=== PATIENT | female | born 1965 | race Two or more races ===

== ENCOUNTER 2017-01-19 16:33 | Emergency (ER) | payer MEDICARE, MEDICAID ==
[~2017-01-19] VITALS: Ht 157.5 cm; Wt 58.4 kg
[~2017-01-19 16:33] MED LIST: /METO25TAB PO; ACET65TA OR; ALPR1TAB3 PO; BUDE150T OR; BUPR150T5 PO; BUTR20DI2 TD; CIPR-249 PO; CLON1TAB PO; DIPH2.5L PO; FIOR1CAP PO; FIORICET OR; FIORICET PO; FLAG500T PO; HYDR-3363 PO; IBUP200T2 PO; KLON1TAB OR; KLON1TAB PO; KLON2TAB PO; LABE20TAB PO; LEVO100T4 PO; LEVO75TA2 OR; LISI10TA4 OR; LISI10TA4 PO; MAALSUS OR; MAGN500T2 OR; METH2.5T PO; PHEN 25 OR; PHEN25IN3 PO; PRED10TA2 OR; PRED20TA OR; PRIN10TA PO; PROP10TAB PO; PROP60TA OR; PROZ20CA OR; SERO1TAB PO; SERO50TA PO; TIZA4CAP PO; TIZA4CAP3 PO; TIZA4TAB3 PO; TUMS500C PO; TYLE650T25 PO; Tylenol PO; VALI10TA PO; VENL75TA3 PO; VITA100T OR; VITAMIN B 12 IM; WELL100T2 PO; ZANA4CAP PO; ZOLP12.515 PO
[2017-01-19] MEDS ORDERED: [UNRECOGNIZED DRUG - OTHER] XX (17:26)
[2017-01-19] MEDS ORDERED: MAGN200T PO (17:26)
[2017-01-19] MEDS ORDERED: ADDE10CA3 PO (17:26)
[2017-01-19] MEDS ORDERED: IMIT100T PO (17:26)
[2017-01-19] MEDS ORDERED: SONA1CAP PO (17:26)
[2017-01-19] MEDS ORDERED: ADDE1TAB14 PO (17:26)
[2017-01-19] MEDS ORDERED: TOPI50TA9 PO (17:26)
[2017-01-19] MEDS ORDERED: [UNRECOGNIZED DRUG - OTHER] PO (17:26)
[2017-01-19] MEDS ORDERED: CLEO300C2 PO (17:27)
[2017-01-19] MEDS ORDERED: ALBE200T7 PO (18:44)
[2017-01-19 18:53] VITALS: BP 141/103
--- NOTE | 2017-01-19 21:03 | ED PDOC ---
Post-Departure Follow-Up PT PRESENTS WITH TODAY STATING SINCE November, THEY HAVE BEEN HAVING BUG BITES. THE STATE THEY CAN SEE THE BUGS, THEY ARE SMALL AND DARK IN COLOR AND THEY CAN SEE THE BUGS BITING THEM AND BURROWING UNDER THEIR SKIN. PATIENTS STATE THAT THE PICKS THESE AREAS AND HAS PICKED BUGS OUT OF HIS SKIN. THIS PT STATES SHE HAS TAKEN PICTURES OF THEM ON HER PHONE AND SHOWED THESE TO THE PROVIDER. STATES THAT THEY ARE DIFFERENT TYPES, SOME APPEAR LIKE CRABS AND SOME APPEAR LIKE WORMS. PT AND STATE THAT THEY HAVE BEEN SEEN NUMEROUS TIMES FOR THIS AND HAVE BEEN GIVEN ANTIBIOTICS, BACTROBAN, BACITRACIN, PERMETHRIN AND NONE OF THESE MEDICATIONS HAVE HELPED THEIR SYMPTOMS. PATIENTS REQUEST TO SEE DR. 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 PATIENTS WERE GIVEN ANTIPARASITIC PRESCRIPTIONS WELL INFORMATION REGARDING DERMATOLOGY AND DR. PACHECO'S OFFICE. PATIENTS LEFT WITH UNDERSTANDING OF THE TREATMENT PLAN. EVETTE ATKINSON PA-C Jan 19, 2017 21:03
== END 2017-01-19 19:09 | disposition home or self-care (01) ==
LOC: M ED 16:33
DX: B88.9 Infestation, unspecified (principal); Z79.899 Other long term (current) drug therapy; Z88.1 Allergy status to other antibiotic agents; Z88.0 Allergy status to penicillin; Z88.5 Allergy status to narcotic agent; Z88.8 Allergy status to other drugs, medicaments and biological substances

== ENCOUNTER 2017-01-24 16:30 | Emergency (ER) | payer MEDICARE, MEDICAID ==
[~2017-01-24] VITALS: Ht 157.5 cm; Wt 56.4 kg
[2017-01-24 16:30] VITALS: BP 148/100
[~2017-01-24 16:30] MED LIST changes: +ADDE10CA3 PO; +ADDE1TAB14 PO; +ALBE200T7 PO; +CLEO300C2 PO; +IMIT100T PO; +MAGN200T PO; +SONA1CAP PO; +TOPI50TA9 PO; +[UNRECOGNIZED DRUG - OTHER] PO; +[UNRECOGNIZED DRUG - OTHER] XX
[2017-01-24] MEDS ORDERED: LIDOCAINE 4% CREAM 5GM (LMX4) TOP ONE (17:45)
== END 2017-01-24 18:11 | disposition home or self-care (01) ==
LOC: M ED 16:30
DX: B89 Unspecified parasitic disease (principal); I10 Essential (primary) hypertension; M79.7 Fibromyalgia; E05.90 Thyrotoxicosis, unspecified without thyrotoxic crisis or storm; Z79.899 Other long term (current) drug therapy; Z88.0 Allergy status to penicillin; Z88.8 Allergy status to other drugs, medicaments and biological substances; Z88.5 Allergy status to narcotic agent; Z88.1 Allergy status to other antibiotic agents

== ENCOUNTER → 2017-01-28 | Outpatient (REF) | payer MEDICARE, MEDICAID ==
[2017-01-28 13:19] LABS: BASO # 0.1 K/mm3 (0.0-0.2); BASO % 1.4 % (0.0-1.0); EOS # 0.1 K/mm3 (0.0-0.50); EOS % 1.5 % (0.0-3.0); LARGE UNSTAINED CELL # 0.1 K/mm3 (0.0-0.4); LARGE UNSTAINED CELL % 1.6 % (0.0-4.0); LYMPH % 33.8 % (24.0-44.0); MEAN CORPUSCULAR HEMOGLOBIN 29.2 pg (27.0-33.0); MEAN CORPUSCULAR HGB CONC 34.3 g/dl (32.0-36.5); MEAN CORPUSCULAR VOLUME 85.2 fl (80.0-96.0); MONO # 0.4 K/mm3 (0.0-0.8); MONO % 4.7 % (0.0-5.0); NEUTROPHILS % 56.9 % (36.0-66.0); PLATELET COUNT, AUTOMATED 362 k/mm3 (150-450); RED CELL DISTRIBUTION WIDTH 13.1 % (11.5-14.5); WHITE BLOOD COUNT 8.9 K/mm3 (4.0-10.0)
[2017-01-28 13:37] LABS: ALBUMIN 4.1 GM/DL (3.2-5.2); ALBUMIN/GLOBULIN RATIO 1.24 (1.00-1.93); ALKALINE PHOSPHATASE 87 U/L (45-117); ALT/SGPT 18 U/L (12-78); ANION GAP 10 MEQ/L (8-16); AST/SGOT 23 U/L (15-37); BILIRUBIN,TOTAL 0.3 MG/DL (0.2-1.0); BLOOD UREA NITROGEN 12 MG/DL (7-18); CALCIUM LEVEL 9.2 MG/DL (8.5-10.1); CARBON DIOXIDE LEVEL 22 MEQ/L (21-32); CHLORIDE LEVEL 105 MEQ/L (98-107); CREATININE FOR GFR 1.21 MG/DL (0.55-1.02); GLOMERULAR FILTRATION RATE 50.3 (>58); GLUCOSE, FASTING 68 MG/DL (70-105); POTASSIUM SERUM 3.5 MEQ/L (3.5-5.1); SODIUM LEVEL 137 MEQ/L (136-145); TOTAL PROTEIN 7.4 GM/DL (6.4-8.2)
[2017-01-28 13:56] LABS: ERYTHROCYTE SEDIMENTATION RATE 5 mm/hr (0-20)
== END ==
LOC: M SFHCPLAZ 10:01
PROVIDERS: ATTEND Internal Medicine Infectious Disease
DX: R21 Rash and other nonspecific skin eruption (principal); M79.7 Fibromyalgia; L98.499 Non-pressure chronic ulcer of skin of other sites with unspecified severity
CPT/HCPCS: 80053; 85025; 85652; 86140; 86200; 86431; 87070; G0463

== ENCOUNTER 2017-12-27 08:00 | Emergency (ER) | payer MEDICARE, MEDICAID ==
[2017-12-27] MEDS: clonazePAM 1 MG TAB PO (08:44)
== END 2017-12-27 09:52 | disposition home or self-care (01) ==
LOC: M ED 08:00
DX: Z76.0 Encounter for issue of repeat prescription (principal); M06.9 Rheumatoid arthritis, unspecified; M79.7 Fibromyalgia; F39 Unspecified mood [affective] disorder; Z79.899 Other long term (current) drug therapy; Z88.1 Allergy status to other antibiotic agents; Z88.0 Allergy status to penicillin; Z88.5 Allergy status to narcotic agent; Z88.8 Allergy status to other drugs, medicaments and biological substances
CPT/HCPCS: 99283

== ENCOUNTER → 2018-05-20 | Outpatient (CLI) | payer MEDICARE, MEDICAID ==
[2018-05-20 13:52] LABS: BASO # 0.1 10^3/uL (0.0-0.2); BASO % 0.8 % (0.0-1.0); EOS % 0.3 % (0.0-3.0); HEMATOCRIT 45.1 % (36.0-47.0); HEMOGLOBIN 15.4 g/dl (12.0-15.5); IMMATURE GRANULOCYTE % 0.3 % (0-3.0); LYMPH # 3.1 10^3/uL (1.5-4.5); LYMPH % 24.9 % (24.0-44.0); MEAN CORPUSCULAR HEMOGLOBIN 29.7 pg (27.0-33.0); MEAN CORPUSCULAR HGB CONC 34.1 g/dl (32.0-36.5); MEAN CORPUSCULAR VOLUME 87.1 fl (80.0-96.0); MONO % 7.7 % (0.0-5.0); NEUTROPHILS # 8.2 10^3/uL (1.8-7.7); PLATELET COUNT, AUTOMATED 359 10^3/uL (150-450); RED BLOOD COUNT 5.18 10^6/uL (4.00-5.40); RED CELL DISTRIBUTION WIDTH 12.5 % (11.5-14.5); WHITE BLOOD COUNT 12.4 10^3/uL (4.0-10.0)
[2018-05-20 14:16] LABS: ALBUMIN 3.6 GM/DL (3.2-5.2); ALBUMIN/GLOBULIN RATIO 0.88 (1.00-1.93); ALKALINE PHOSPHATASE 118 U/L (45-117); ALT/SGPT 24 U/L (12-78); ANION GAP 10 MEQ/L (8-16); AST/SGOT 26 U/L (7-37); BILIRUBIN,TOTAL 0.4 MG/DL (0.2-1.0); BLOOD UREA NITROGEN 16 MG/DL (7-18); CALCIUM LEVEL 8.7 MG/DL (8.5-10.1); CARBON DIOXIDE LEVEL 21 MEQ/L (21-32); CHLORIDE LEVEL 113 MEQ/L (98-107); CHOLESTEROL LEVEL 360 MG/DL (<200); CHOLESTEROL RISK RATIO 3.636 (<5); CREATININE FOR GFR 1.01 MG/DL (0.55-1.30); FREE T4 0.74 NG/DL (0.76-1.46); GLOMERULAR FILTRATION RATE > 60.0 (>51); GLUCOSE, FASTING 106 MG/DL (70-100); HDL CHOLESTEROL 99 MG/DL (>40); LDL CHOLESTEROL 218 MG/DL (<100); NON-HDL-C 261 MG/DL; POTASSIUM SERUM 3.9 MEQ/L (3.5-5.1); SODIUM LEVEL 144 MEQ/L (136-145); TOTAL PROTEIN 7.7 GM/DL (6.4-8.2); TRIGLYCERIDES LEVEL 214 MG/DL (<150)
[2018-05-20 14:26] LABS: ESTIMATED AVERAGE GLUCOSE 108 MG/DL (60-110); HEMOGLOBIN A1c 5.4 %
== END ==
LOC: M RAD 11:34
DX: M50.21 Other cervical disc displacement, high cervical region (principal); M50.221 Other cervical disc displacement at C4-C5 level; M50.222 Other cervical disc displacement at C5-C6 level; M25.78 Osteophyte, vertebrae; M46.1 Sacroiliitis, not elsewhere classified; M79.10 Myalgia, unspecified site; M47.814 Spondylosis without myelopathy or radiculopathy, thoracic region; M47.812 Spondylosis without myelopathy or radiculopathy, cervical region; M51.37 Other intervertebral disc degeneration, lumbosacral region; Z51.81 Encounter for therapeutic drug level monitoring; Z79.899 Other long term (current) drug therapy
CPT/HCPCS: 72141

== ENCOUNTER 2018-11-12 23:24 | Emergency (ER) | payer MEDICARE, MEDICAID ==
[~2018-11-12] VITALS: Ht 160 cm; Wt 73.3 kg
[~2018-11-12 23:24] MED LIST changes: -/METO25TAB PO; +ADDE20CA3 PO; +AMPH20CA PO; +ATOM40CA PO; +CELE10TA PO; +HYDR50TA70 PO; +LEVO150T7; +METH2.5T48 PO; +METO1TAB87 PO; +OXYC1TAB23 PO; +QUET5TAB PO; +SONA10CA23 PO; -TIZA4CAP3 PO; +VENL-142 PO; -VENL75TA3 PO; +VITA500T PO; +ZALE10CA; +ZOFR4TAB14 PO
[2018-11-13 02:21] VITALS: BP 122/78
--- NOTE | 2018-11-13 07:01 | REP ---
Clinical: Trauma Technique: AP, lateral, bilateral oblique views of the right hand. Findings: Old fractures involving the third and fourth metacarpal bones noted. No acute fracture dislocation. Soft tissues and joint spaces are intact and normal. Impression: No acute fracture dislocation. Electronically Signed by Matt Monroe MD 11/13/2018 06:52 A
== END 2018-11-13 02:56 | disposition home or self-care (01) ==
LOC: M ED 23:24 → EEVIPCON 23:24 → M ED 11-13 02:56
DX: S60.221A Contusion of right hand, initial encounter (principal); Y04.8XXA Assault by other bodily force, initial encounter; Y07.01 Husband, perpetrator of maltreatment and neglect; F33.9 Major depressive disorder, recurrent, unspecified; F41.9 Anxiety disorder, unspecified; Z79.899 Other long term (current) drug therapy; Z79.890 Hormone replacement therapy; Z88.0 Allergy status to penicillin; Z88.1 Allergy status to other antibiotic agents; Z88.5 Allergy status to narcotic agent; Z88.8 Allergy status to other drugs, medicaments and biological substances; F17.210 Nicotine dependence, cigarettes, uncomplicated

== ENCOUNTER → 2018-11-22 | Outpatient (CLI) | payer MEDICARE, MEDICAID ==
[2018-11-22 13:19] LABS: THYROID STIMULATING HORMONE 10.2 uIU/ML (0.358-3.740); THYROXINE (T4) 4.9 UG/DL (4.5-12.0)
== END ==
LOC: M LAB 11:55
PROVIDERS: ATTEND Anesthesiology Pain Medicine
DX: E03.9 Hypothyroidism, unspecified (principal)

== ENCOUNTER 2019-09-03 21:20 | Emergency (ER) | payer MEDICARE, MEDICAID ==
[~2019-09-03] VITALS: Ht 157.5 cm; Wt 72.7 kg
[~2019-09-03 21:20] MED LIST changes: +AMPH1CAP16 PO; -AMPH20CA PO
[2019-09-03] MEDS ORDERED: diphenhydrAMINE INJ 50MG/ML VIAL (J1200) IM STA (21:44)
[2019-09-03] MEDS ORDERED: HALOPERIDOL 5 MG/ML VIAL (J1630) IM STA (21:44)
[2019-09-03] MEDS ORDERED: LORazepam 2 MG/ML VIAL (J2060) IM STA (21:44)
[2019-09-03 23:25] LABS: HEMOGLOBIN 14.8 g/dl (12.0-15.5); MEAN CORPUSCULAR HGB CONC 33.6 g/dl (32.0-36.5); MEAN CORPUSCULAR VOLUME 86.1 fl (80.0-96.0); PLATELET COUNT, AUTOMATED 295 10^3/uL (150-450); RED BLOOD COUNT 5.11 10^6/uL (4.00-5.40); WHITE BLOOD COUNT 6.5 10^3/uL (4.0-10.0)
[2019-09-03 23:57] LABS: ACETAMINOPHEN LEVEL < 2.0 UG/ML (10.0-30.0); ALBUMIN 3.3 GM/DL (3.2-5.2); ALT/SGPT 79 U/L (12-78); BILIRUBIN,DIRECT 0.2 MG/DL (0.0-0.2); BILIRUBIN,TOTAL 0.2 MG/DL (0.2-1.0); BLOOD UREA NITROGEN 14 MG/DL (7-18); CARBON DIOXIDE LEVEL 24 MEQ/L (21-32); CHLORIDE LEVEL 111 MEQ/L (98-107); CREATININE FOR GFR 0.64 MG/DL (0.55-1.30); ETHYL ALCOHOL (ETHANOL) 0.289 % (0.000-0.010); GLOMERULAR FILTRATION RATE > 60.0 (>51); GLUCOSE, FASTING 107 MG/DL (70-100); POTASSIUM SERUM 3.9 MEQ/L (3.5-5.1); SALICYLATE LEVEL < 1.7 MG/DL (5.0-30.0); SODIUM LEVEL 142 MEQ/L (136-145); THYROID STIMULATING HORMONE < 0.005 uIU/ML (0.358-3.740); TOTAL PROTEIN 6.4 GM/DL (6.4-8.2)
[2019-09-04 00:28] LABS: AMPHETAMINES LEVEL URINE NEGATIVE (NEGATIVE); BARBITURATES URINE NEGATIVE (NEGATIVE); BENZODIAZEPINES URINE NEGATIVE (NEGATIVE); CANNABINOIDS URINE NEGATIVE (NEGATIVE); COCAINE METABOLITE URINE NEGATIVE (NEGATIVE); METHADONE URINE NEGATIVE (NEGATIVE); OPIATES URINE NEGATIVE (NEGATIVE); PHENCYCLIDINE URINE NEGATIVE (NEGATIVE)
[2019-09-04] MEDS ORDERED: LORazepam 2 MG TAB PO PRN (04:45)
[2019-09-04 08:25] VITALS: BP 143/83
[2019-09-04] MEDS ORDERED: TOPIRAMATE (TopAMAX) 25 MG TAB PO ONE (08:45)
[2019-09-04] MEDS ORDERED: clonazePAM 1 MG TAB PO ONE (08:45)
[2019-09-04] MEDS ORDERED: LEVOTHYROXINE 100MCG TABLET (0.1MG) PO ONE (08:45)
[2019-09-04] MEDS ORDERED: FOLIC ACID 1 MG TAB PO SCH (09:00)
[2019-09-04] MEDS ORDERED: MULTIVITAMINS/MINERALS THERAP 1 TAB PO SCH (09:00)
[2019-09-04] MEDS ORDERED: THIAMINE 100 MG TAB PO SCH (09:00)
== END 2019-09-04 08:58 | disposition home or self-care (01) ==
LOC: M ED 21:20
DX: F10.120 Alcohol abuse with intoxication, uncomplicated (principal); F33.9 Major depressive disorder, recurrent, unspecified; F41.9 Anxiety disorder, unspecified; I10 Essential (primary) hypertension; E03.9 Hypothyroidism, unspecified; Z88.0 Allergy status to penicillin; Z88.5 Allergy status to narcotic agent; Z88.9 Allergy status to unspecified drugs, medicaments and biological substances; Z79.899 Other long term (current) drug therapy
CPT/HCPCS: 36415; 80048; 80076; 84443; 85027; 96372; 99285; G0480; J1200; J1630; J2060

== ENCOUNTER 2019-09-08 13:39 | Emergency (ER) | payer MEDICARE, MEDICAID ==
[~2019-09-08] VITALS: Ht 157.5 cm; Wt 74.9 kg
[2019-09-08 13:41] VITALS: BP 144/97
[2019-09-08] MEDS ORDERED: LEVO200T4 PO (14:06)
[2019-09-08] MEDS ORDERED: AMPH1CAP5 PO (14:06)
[2019-09-08] MEDS ORDERED: MELO15TA28 PO (14:06)
[2019-09-08] MEDS ORDERED: AMMO12CR7 TOP (16:08)
--- NOTE | 2019-09-09 07:32 | REP ---
CT BRAIN WITHOUT IV CONTRAST: CT brain performed without IV contrast. Ventricles are normal in size and position with no midline shift or mass effect. Miller-white differentiation is well maintained. There is no intracranial hemorrhage or extra-axial fluid collection. Bone window examination demonstrates no fracture. IMPRESSION: Negative noncontrast CT brain. Electronically Signed by Richie Miller MD 09/09/2019 05:53 P
--- NOTE | 2019-09-09 07:37 | REP ---
CT MAXILLOFACIAL BONES: CT maxillofacial bones performed without IV contrast. Sagittal and coronal reconstruction images are performed. Maxillofacial bones are intact with no fracture. Nasal bones are intact as are the maxillary spines. Zygomatic arches are intact. Paranasal sinuses are clear with no air-fluid levels. Globes are intact. IMPRESSION: No evidence of acute fracture. Electronically Signed by Richie Miller MD 09/09/2019 05:54 P
== END 2019-09-08 16:30 | disposition home or self-care (01) ==
LOC: M ED 13:39
DX: S00.83XA Contusion of other part of head, initial encounter (principal); X58.XXXA Exposure to other specified factors, initial encounter; Y92.239 Unspecified place in hospital as the place of occurrence of the external cause; I10 Essential (primary) hypertension; M79.7 Fibromyalgia; F41.9 Anxiety disorder, unspecified; Z88.0 Allergy status to penicillin; Z88.5 Allergy status to narcotic agent; Z88.8 Allergy status to other drugs, medicaments and biological substances; Z79.83 Long term (current) use of bisphosphonates; Z79.899 Other long term (current) drug therapy

== ENCOUNTER 2020-01-27 09:38 | Emergency (ER) | payer OTHER, MEDICAID ==
[~2020-01-27] VITALS: Ht 157.5 cm; Wt 75.5 kg
[~2020-01-27 09:38] MED LIST changes: +AMMO12CR7 TOP; +AMPH1CAP5 PO; -ATOM40CA PO; +ATOM40CA16 PO; +LEVO200T4 PO; +MELO15TA28 PO; +VITA-243 PO; -VITA500T PO
[2020-01-27] MEDS ORDERED: ZOLP10TA2 (09:53)
[2020-01-27] MEDS ORDERED: QUET5TAB (09:53)
[2020-01-27] MEDS ORDERED: LORazepam 0.5 MG TAB PO STA (10:41)
[2020-01-27 12:11] LABS: AMPHETAMINES LEVEL URINE POSITIVE (NEGATIVE); BARBITURATES URINE NEGATIVE (NEGATIVE); BENZODIAZEPINES URINE POSITIVE (NEGATIVE); CANNABINOIDS URINE POSITIVE (NEGATIVE); COCAINE METABOLITE URINE NEGATIVE (NEGATIVE); METHADONE URINE NEGATIVE (NEGATIVE); OPIATES URINE NEGATIVE (NEGATIVE); PHENCYCLIDINE URINE NEGATIVE (NEGATIVE)
[2020-01-27 12:39] LABS: BASO # 0.1 10^3/uL (0.0-0.2); BASO % 0.4 % (0.0-1.0); EOS % 0.3 % (0.0-3.0); HEMATOCRIT 45.3 % (36.0-47.0); HEMOGLOBIN 15.5 g/dl (12.0-15.5); LYMPH # 3.5 10^3/uL (1.5-5.0); LYMPH % 30.7 % (24.0-44.0); MEAN CORPUSCULAR HEMOGLOBIN 28.9 pg (27.0-33.0); MEAN CORPUSCULAR HGB CONC 34.2 g/dl (32.0-36.5); MEAN CORPUSCULAR VOLUME 84.4 fl (80.0-96.0); MONO # 0.6 10^3/uL (0.0-0.8); MONO % 5.5 % (0.0-5.0); NEUTROPHILS # 7.2 10^3/uL (1.5-8.5); NEUTROPHILS % 62.8 % (36.0-66.0); PLATELET COUNT, AUTOMATED 372 10^3/uL (150-450); RED BLOOD COUNT 5.37 10^6/uL (4.00-5.40); WHITE BLOOD COUNT 11.4 10^3/uL (4.0-10.0)
[2020-01-27 13:17] LABS: ACETAMINOPHEN LEVEL < 2.0 UG/ML (10.0-30.0); ALBUMIN 4.3 GM/DL (3.2-5.2); ALT/SGPT 19 U/L (12-78); BILIRUBIN,DIRECT 0.2 MG/DL (0.0-0.2); BILIRUBIN,TOTAL 0.7 MG/DL (0.2-1.0); BLOOD UREA NITROGEN 19 MG/DL (7-18); CALCIUM LEVEL 9.6 MG/DL (8.5-10.1); CARBON DIOXIDE LEVEL 23 MEQ/L (21-32); CHLORIDE LEVEL 109 MEQ/L (98-107); CREATININE FOR GFR 1.29 MG/DL (0.55-1.30); ETHYL ALCOHOL (ETHANOL) < 0.003 % (0.000-0.010); GLOMERULAR FILTRATION RATE 46.2 (>51); GLUCOSE, FASTING 96 MG/DL (70-100); LIPASE 90 U/L (73-393); POTASSIUM SERUM 4.2 MEQ/L (3.5-5.1); SALICYLATE LEVEL < 1.7 MG/DL (5.0-30.0); SODIUM LEVEL 138 MEQ/L (136-145); THYROID STIMULATING HORMONE 0.055 uIU/ML (0.358-3.740); TOTAL PROTEIN 8.2 GM/DL (6.4-8.2)
[2020-01-27 13:42] VITALS: BP 125/96
[2020-01-27 13:42] LABS: FREE T4 1.63 NG/DL (0.76-1.46)
[2020-01-27 13:58] LABS: CHLAMYDIA DNA AMPLIFICATION NEGATIVE (NEGATIVE); GC DNA AMPLIFICATION NEGATIVE (NEGATIVE)
[2020-01-27] MEDS ORDERED: VALA500T5 PO (14:31)
[2020-01-27] MEDS ORDERED: BACI500O21 TOP (14:32)
[2020-01-27] MEDS ORDERED: AMMO12CR7 TOP (14:37)
== END 2020-01-27 14:44 | disposition home or self-care (01) ==
LOC: M ED 09:38
DX: A60.04 Herpesviral vulvovaginitis (principal); L73.9 Follicular disorder, unspecified; F12.10 Cannabis abuse, uncomplicated; M79.7 Fibromyalgia; F90.9 Attention-deficit hyperactivity disorder, unspecified type; F33.9 Major depressive disorder, recurrent, unspecified; F41.9 Anxiety disorder, unspecified; F43.10 Post-traumatic stress disorder, unspecified; Z88.0 Allergy status to penicillin; Z88.6 Allergy status to analgesic agent; Z79.899 Other long term (current) drug therapy
CPT/HCPCS: 36415; 80048; 80076; 80307; 81001; 83690; 84439; 84443; 85025; 87086; 87210; 87661; 99284; G0480

== ENCOUNTER 2020-02-10 17:05 | Emergency (ER) | payer OTHER, MEDICAID ==
[~2020-02-10 17:05] MED LIST changes: +BACI500O21 TOP; +QUET5TAB; +VALA500T5 PO; +ZOLP10TA2
[2020-02-10] MEDS ORDERED: ONDANSETRON 4MG/2ML VIAL ONE ×2 (18:10→19:24)
[2020-02-10] MEDS ORDERED: MORPHINE 2 MG/ML 1ML VIAL (J2270) ONE (18:10)
[2020-02-10] MEDS ORDERED: ONDANSETRON 4MG/2ML VIAL As Ordered ONE ×2 (18:10→19:24)
[2020-02-10] MEDS ORDERED: MORPHINE 2 MG/ML 1ML VIAL (J2270) As Ordered ONE (18:11)
[2020-02-10] MEDS ORDERED: ISOVUE-370 76% 100ML VIAL As Ordered ONE (19:22)
[2020-02-10] MEDS ORDERED: MAGNESIUM CITRATE 300 ML BTL As Ordered ONE (20:49)
[2020-02-10] MEDS ORDERED: MAGNESIUM CITRATE 300 ML BTL ONE (20:49)
[2020-03-27 13:18] LABS: INR 0.83; PROTHROMBIN TIME 11.6 SECONDS (11.8-14.0)
[2020-03-27 14:02] LABS: APPEARANCE, URINE CLEAR (CLEAR); BACTERIA, URINE AUTO NEGATIVE (NEGATIVE); BILIRUBIN, URINE AUTO NEGATIVE (NEGATIVE); BLOOD, URINE BLOOD NEGATIVE (NEGATIVE); COLOR, URINE YELLOW (YELLOW); GLUCOSE, URINE (UA) AUTO NEGATIVE (NEGATIVE); KETONE, URINE AUTO NEGATIVE (NEGATIVE); LEUKOCYTE ESTERASE, URINE AUTO NEGATIVE (NEGATIVE); NITRITE, URINE AUTO NEGATIVE (NEGATIVE); PROTEIN, URINE AUTO NEGATIVE (NEGATIVE); RBC, URINE AUTO 0 /HPF (0-3); SPECIFIC GRAVITY URINE AUTO 1.011 (1.002-1.035); SQUAMOUS EPITHELIAL CELL UR AU 0 /HPF (0-6); UROBILINOGEN, URINE AUTO 0.2 mg/dL (0.0-2.0); WBC, URINE AUTO 0 /HPF (0-3)
[2020-03-27 16:46] LABS: BASO # 0.1 10^3/uL (0.0-0.2); BASO % 0.7 % (0.0-1.0); EOS # 0.2 10^3/uL (0.0-0.5); HEMATOCRIT 46.8 % (36.0-47.0); HEMOGLOBIN 15.6 g/dl (12.0-15.5); LYMPH # 2.8 10^3/uL (1.5-5.0); LYMPH % 37.3 % (24.0-44.0); MEAN CORPUSCULAR HEMOGLOBIN 28.8 pg (27.0-33.0); MEAN CORPUSCULAR HGB CONC 33.3 g/dl (32.0-36.5); MEAN CORPUSCULAR VOLUME 86.3 fl (80.0-96.0); MONO # 0.5 10^3/uL (0.0-0.8); NEUTROPHILS # 3.8 10^3/uL (1.5-8.5); NEUTROPHILS % 51.7 % (36.0-66.0); PLATELET COUNT, AUTOMATED 270 10^3/uL (150-450); RED BLOOD COUNT 5.42 10^6/uL (4.00-5.40); WHITE BLOOD COUNT 7.4 10^3/uL (4.0-10.0)
[2020-04-23 16:54] LABS: BLOOD UREA NITROGEN 17 MG/DL (7-18); CALCIUM LEVEL 9.2 MG/DL (8.5-10.1); CARBON DIOXIDE LEVEL 24 MEQ/L (21-32); CHLORIDE LEVEL 110 MEQ/L (98-107); CREATININE FOR GFR 0.92 MG/DL (0.55-1.30); GLOMERULAR FILTRATION RATE > 60.0 (>51); GLUCOSE, FASTING 100 MG/DL (70-100); POTASSIUM SERUM 5.2 MEQ/L (3.5-5.1); SODIUM LEVEL 139 MEQ/L (136-145)
== END 2020-02-10 20:55 | disposition home or self-care (01) ==
LOC: M ED 17:05
DX: R10.9 Unspecified abdominal pain (principal); K59.00 Constipation, unspecified; M79.7 Fibromyalgia; K44.9 Diaphragmatic hernia without obstruction or gangrene; D73.89 Other diseases of spleen; N20.0 Calculus of kidney; Z79.899 Other long term (current) drug therapy; R91.8 Other nonspecific abnormal finding of lung field; I10 Essential (primary) hypertension; W18.11XA Fall from or off toilet without subsequent striking against object, initial encounter; Y92.9 Unspecified place or not applicable; Y93.9 Activity, unspecified; Y99.9 Unspecified external cause status
CPT/HCPCS: 74177; 80048; 81001; 82550; 82553; 85025; 85610; 96361; 96374; 96376; 99283; J2270; J2405; Q9967

== ENCOUNTER 2020-03-11 10:16 | Emergency (ER) | payer OTHER, MEDICAID ==
[~2020-03-11] VITALS: Ht 157.5 cm; Wt 75.5 kg
[2020-03-11] MEDS ORDERED: ONDANSETRON 4 MG ORAL DISINTEGRATING TAB PO ONE (11:45)
[2020-03-11 12:01] LABS: BASO # 0.1 10^3/uL (0.0-0.2); BASO % 0.9 % (0.0-1.0); EOS # 0.2 10^3/uL (0.0-0.5); EOS % 2.1 % (0.0-3.0); HEMATOCRIT 48.9 % (36.0-47.0); HEMOGLOBIN 16.3 g/dl (12.0-15.5); LYMPH # 2.8 10^3/uL (1.5-5.0); LYMPH % 31.8 % (24.0-44.0); MEAN CORPUSCULAR HEMOGLOBIN 28.6 pg (27.0-33.0); MEAN CORPUSCULAR HGB CONC 33.3 g/dl (32.0-36.5); MEAN CORPUSCULAR VOLUME 85.9 fl (80.0-96.0); MONO # 0.6 10^3/uL (0.0-0.8); MONO % 7.2 % (0.0-5.0); NEUTROPHILS # 5.1 10^3/uL (1.5-8.5); NEUTROPHILS % 57.8 % (36.0-66.0); PLATELET COUNT, AUTOMATED 335 10^3/uL (150-450); RED BLOOD COUNT 5.69 10^6/uL (4.00-5.40); WHITE BLOOD COUNT 8.8 10^3/uL (4.0-10.0)
[2020-03-11 12:32] LABS: ALBUMIN 3.9 GM/DL (3.2-5.2); ALT/SGPT 20 U/L (12-78); BILIRUBIN,DIRECT < 0.1 MG/DL (0.0-0.2); BILIRUBIN,TOTAL 0.5 MG/DL (0.2-1.0); BLOOD UREA NITROGEN 21 MG/DL (7-18); CALCIUM LEVEL 9.7 MG/DL (8.5-10.1); CARBON DIOXIDE LEVEL 22 MEQ/L (21-32); CHLORIDE LEVEL 110 MEQ/L (98-107); CREATININE FOR GFR 0.91 MG/DL (0.55-1.30); GLOMERULAR FILTRATION RATE > 60.0 (>51); GLUCOSE, FASTING 104 MG/DL (70-100); LIPASE 138 U/L (73-393); POTASSIUM SERUM 4.4 MEQ/L (3.5-5.1); SODIUM LEVEL 139 MEQ/L (136-145)
[2020-03-11 12:58] VITALS: BP 132/90
[2020-03-11] MEDS ORDERED: ONDA4TAB6 PO (13:11)
[2020-03-11] MEDS ORDERED: NAPR-837 PO (13:11)
--- NOTE | 2020-04-08 12:59 | REP ---
LEFT RIB SERIES: CLINICAL: Left-sided trauma. TECHNIQUE: Frontal view of the chest with 4-views of the left hemithorax. FINDINGS: Frontal view of the chest demonstrates no acute process. Multiple views of the left hemithorax demonstrates no acute rib fracture or pathology. IMPRESSION: Negative examination. No evidence for acute left rib injury. MTDD
== END 2020-03-11 13:24 | disposition home or self-care (01) ==
LOC: M ED 10:16
DX: S20.212A Contusion of left front wall of thorax, initial encounter (principal); W01.0XXA Fall on same level from slipping, tripping and stumbling without subsequent striking against object, initial encounter; Y92.9 Unspecified place or not applicable; R11.2 Nausea with vomiting, unspecified; R19.7 Diarrhea, unspecified; E86.0 Dehydration; M79.7 Fibromyalgia; I10 Essential (primary) hypertension; F33.9 Major depressive disorder, recurrent, unspecified; F41.9 Anxiety disorder, unspecified; F40.00 Agoraphobia, unspecified; Z88.6 Allergy status to analgesic agent; Z88.8 Allergy status to other drugs, medicaments and biological substances; Z79.899 Other long term (current) drug therapy
CPT/HCPCS: 36415; 71101; 80048; 80076; 81001; 83690; 85025; 99283; Q0162

== ENCOUNTER 2020-11-12 13:50 | Emergency (ER) | payer OTHER, MEDICAID ==
[~2020-11-12] VITALS: Ht 157.5 cm; Wt 77.9 kg
[~2020-11-12 13:50] MED LIST changes: +ALBE200T18 PO; -ALBE200T7 PO; +LISI10TA22 PO; -LISI10TA4 PO; +NAPR-837 PO; +ONDA4TAB6 PO; +QUET50TA3; +QUET50TA3 PO; -QUET5TAB; -QUET5TAB PO
[2020-11-12] MEDS ORDERED: CEPH500T PO (16:35)
[2020-11-12 16:46] VITALS: BP 140/90
== END 2020-11-12 16:48 | disposition home or self-care (01) ==
LOC: M ED 13:50
DX: T25.111A Burn of first degree of right ankle, initial encounter (principal); T31.0 Burns involving less than 10% of body surface; X15.8XXA Contact with other hot household appliances, initial encounter; L03.115 Cellulitis of right lower limb; Y92.009 Unspecified place in unspecified non-institutional (private) residence as the place of occurrence of the external cause; Y93.9 Activity, unspecified; Y99.9 Unspecified external cause status

== ENCOUNTER 2020-11-30 12:11 | Emergency (ER) | payer OTHER, MEDICAID ==
[~2020-11-30] VITALS: Ht 157.5 cm; Wt 78.1 kg
[2020-11-30 12:11] VITALS: BP 149/98
[~2020-11-30 12:11] MED LIST changes: +CEPH500T PO
[2020-11-30] MEDS ORDERED: TIZA4TAB4 (12:21)
[2020-11-30] MEDS ORDERED: VALA500T5 (12:22)
[2020-11-30 14:04] LABS: BASO # 0.1 10^3/uL (0.0-0.2); BASO % 0.9 % (0.0-1.0); EOS # 0.4 10^3/uL (0.0-0.5); EOS % 3.5 % (0.0-3.0); HEMATOCRIT 47.4 % (36.0-47.0); HEMOGLOBIN 15.7 g/dl (12.0-15.5); LYMPH # 2.4 10^3/uL (1.5-5.0); LYMPH % 22.5 % (24.0-44.0); MEAN CORPUSCULAR HEMOGLOBIN 29.7 pg (27.0-33.0); MEAN CORPUSCULAR HGB CONC 33.1 g/dl (32.0-36.5); MEAN CORPUSCULAR VOLUME 89.8 fl (80.0-96.0); MONO # 0.9 10^3/uL (0.0-0.8); MONO % 8.1 % (2.0-8.0); NEUTROPHILS # 6.8 10^3/uL (1.5-8.5); NEUTROPHILS % 64.6 % (36.0-66.0); PLATELET COUNT, AUTOMATED 342 10^3/uL (150-450); RED BLOOD COUNT 5.28 10^6/uL (4.00-5.40); WHITE BLOOD COUNT 10.5 10^3/uL (4.0-10.0)
[2020-11-30 14:22] LABS: ERYTHROCYTE SEDIMENTATION RATE 13 mm/hr (0-30)
[2020-11-30 14:25] LABS: ALBUMIN 3.5 GM/DL (3.2-5.2); BILIRUBIN,DIRECT 0.1 MG/DL (0.0-0.2); BILIRUBIN,TOTAL 0.6 MG/DL (0.2-1.0); C REACTIVE PROTEIN QUANTITATIV 2.53 MG/DL (0.00-0.30); CALCIUM LEVEL 8.8 MG/DL (8.5-10.1); CREATININE FOR GFR 1.66 MG/DL (0.55-1.30); GLOMERULAR FILTRATION RATE 34.5 (>51); POTASSIUM SERUM 3.8 MEQ/L (3.5-5.1); TOTAL PROTEIN 7.4 GM/DL (6.4-8.2)
== END 2020-11-30 15:17 | disposition home or self-care (01) ==
LOC: M ED 12:11
DX: T25.11 Burn of first degree of ankle (principal); X15.8XXD Contact with other hot household appliances, subsequent encounter; Y92.009 Unspecified place in unspecified non-institutional (private) residence as the place of occurrence of the external cause; R79.89 Other specified abnormal findings of blood chemistry; R11.0 Nausea; E86.0 Dehydration; R61 Generalized hyperhidrosis; I10 Essential (primary) hypertension; M79.7 Fibromyalgia; E03.9 Hypothyroidism, unspecified; Z88.0 Allergy status to penicillin; Z88.8 Allergy status to other drugs, medicaments and biological substances; Z79.890 Hormone replacement therapy; Z79.899 Other long term (current) drug therapy

== ENCOUNTER 2020-12-05 16:05 | Emergency (ER) | payer OTHER, MEDICAID ==
[~2020-12-05] VITALS: Ht 157.5 cm; Wt 77.3 kg
[~2020-12-05 16:05] MED LIST changes: +TIZA4TAB4; +VALA500T5
[2020-12-05] MEDS ORDERED: TRAM50TA2 PO (16:17)
[2020-12-05 17:47] LABS: BASO # 0.1 10^3/uL (0.0-0.2); BASO % 1.2 % (0.0-1.0); EOS # 0.3 10^3/uL (0.0-0.5); EOS % 3.2 % (0.0-3.0); HEMATOCRIT 51.4 % (36.0-47.0); HEMOGLOBIN 17.2 g/dl (12.0-15.5); LYMPH # 2.6 10^3/uL (1.5-5.0); LYMPH % 30.3 % (24.0-44.0); MEAN CORPUSCULAR HEMOGLOBIN 29.9 pg (27.0-33.0); MEAN CORPUSCULAR HGB CONC 33.5 g/dl (32.0-36.5); MEAN CORPUSCULAR VOLUME 89.4 fl (80.0-96.0); MONO # 0.5 10^3/uL (0.0-0.8); NEUTROPHILS # 5.1 10^3/uL (1.5-8.5); NEUTROPHILS % 58.8 % (36.0-66.0); PLATELET COUNT, AUTOMATED 460 10^3/uL (150-450); RED BLOOD COUNT 5.75 10^6/uL (4.00-5.40); WHITE BLOOD COUNT 8.7 10^3/uL (4.0-10.0)
[2020-12-05 18:13] LABS: ALT/SGPT 14 U/L (12-78); BILIRUBIN,DIRECT 0.1 MG/DL (0.0-0.2); BILIRUBIN,TOTAL 0.4 MG/DL (0.2-1.0); BLOOD UREA NITROGEN 23 MG/DL (7-18); CALCIUM LEVEL 9.3 MG/DL (8.5-10.1); CARBON DIOXIDE LEVEL 20 MEQ/L (21-32); CHLORIDE LEVEL 112 MEQ/L (98-107); CREATININE FOR GFR 1.05 MG/DL (0.55-1.30); GLOMERULAR FILTRATION RATE 58.6 (>51); GLUCOSE, FASTING 106 MG/DL (70-100); LIPASE 76 U/L (73-393); POTASSIUM SERUM 4.5 MEQ/L (3.5-5.1); SODIUM LEVEL 141 MEQ/L (136-145); TOTAL PROTEIN 8.2 GM/DL (6.4-8.2)
[2020-12-05] MEDS ORDERED: NS 1,000 ML IV ONE (20:00)
[2020-12-05] MEDS ORDERED: ISOVUE-370 76% 100ML VIAL As Ordered ONE (20:03)
[2020-12-05 20:30] LABS: CK-MB VALUE MASS < 1.0 NG/ML (<3.6); CPK CREATINE PHOSPHOKINASE 39 U/L (26-192); FERRITIN 101 NG/ML (8-252); FREE T4 0.77 NG/DL (0.76-1.46); MB/CK RELATIVE INDEX 2.56 (< OR =4); TROPONIN I < 0.02 NG/ML (< 0.10)
[2020-12-05] MEDS ORDERED: ONDANSETRON 4 MG ORAL DISINTEGRATING TAB PO ONE (21:45)
[2020-12-05] MEDS ORDERED: LIDOCAINE 5% (LIDODERM) PATCH TD ONE (21:45)
--- NOTE | 2020-12-05 22:50 | REPVR ---
PROCEDURE INFORMATION: Exam: CT Abdomen And Pelvis Without Contrast Exam date and time: 12/05/2020 10:03 PM Age: 54 years old Clinical indication: Abdominal pain; Generalized; Additional info: Vomiting, abd pain, back pain TECHNIQUE: Imaging protocol: Computed tomography of the abdomen and pelvis without contrast. Radiation optimization: All CT scans at this facility use at least one of these dose optimization techniques: automated exposure control; mA and/or kV adjustment per patient size (includes targeted exams where dose is matched to clinical indication); or iterative reconstruction. COMPARISON: CT ABD PELVIS W/O CONTRAST 02/12/2020 12:37 AM FINDINGS: Lungs: Multiple bilateral punctate lung nodules with similar distribution and pattern compared to the prior CT. Mediastinal space: Small hiatal hernia is present. Liver: Noncontrast liver shows no obvious lesion. Gallbladder and bile ducts: Gallbladder is either contracted or surgically absent. Pancreas: Noncontrast pancreas shows no obvious mass or adjacent fluid. Spleen: Noncontrast spleen shows no obvious focal deformity. Adrenal glands: Adrenal glands are normal in appearance. Kidneys and ureters: Kidneys are unremarkable aside from a punctate nonobstructing upper pole left renal stone. Stomach and bowel: No evidence of small bowel obstruction. No evidence of acute diverticulitis. Appendix: Normal caliber appendix is identified, with no adjacent inflammation. Intraperitoneal space: No pneumoperitoneum. Vasculature: No aortic aneurysm. Lymph nodes: No enlarged lymph nodes. Urinary bladder: Urinary bladder appears normal. Reproductive: Unremarkable as visualized. Bones/joints: Bony structures show no acute fracture or destructive process. Soft tissues: No effacement of normal fat planes in the ischiorectal fossa. Other findings: Limited evaluation without enteric or IV contrast. IMPRESSION: 1. No acute surgical or inflammatory intra-abdominal or pelvic process. 2. Punctate nonobstructive upper pole left renal stone. 3. Small hiatal hernia, which can be associated with GE reflux 4. Punctate noncalcified bilateral lung nodules unchanged since February 2020 , measuring 3 mm or smaller in size. Fleischner society recommendations for followup and management of nodules smaller than 8 mm detected incidentally on screening CT: Less than or equal to 4 mm: Low risk patients- no followup needed. High risk patients- followup in 12 months. If no change, no further imaging needed. Electronically signed by: Damir Osborne On 12/05/2020 22:49:33 PM
[2020-12-05] MEDS ORDERED: GI COCKTAIL 50ML BTL(HYOSCYAMINE/MAALOX/LIDOCAINE VISCOUS)(1:3:1) PO ONE (23:15)
[2020-12-05] MEDS ORDERED: ACETAMINOPHEN 500 MG TAB PO ONE (23:50)
[2020-12-05] MEDS ORDERED: DICYCLOMINE 10 MG CAP PO ONE (23:50)
[2020-12-05] MEDS ORDERED: PROM25TA12 PO (23:54)
[2020-12-06 00:11] VITALS: BP 146/96
[2020-12-06] MEDS ORDERED: **NOTE PATIENT COMMENT** MISC XX SCH (21:00)
== END 2020-12-06 00:13 | disposition home or self-care (01) ==
LOC: M ED 16:05
DX: R10.9 Unspecified abdominal pain (principal); R11.2 Nausea with vomiting, unspecified; R19.7 Diarrhea, unspecified; M54.5 Low back pain; R71.8 Other abnormality of red blood cells; R79.9 Abnormal finding of blood chemistry, unspecified; R91.1 Solitary pulmonary nodule; N20.0 Calculus of kidney; K44.0 Diaphragmatic hernia with obstruction, without gangrene; I10 Essential (primary) hypertension; M79.7 Fibromyalgia; E03.9 Hypothyroidism, unspecified; F41.9 Anxiety disorder, unspecified; F33.9 Major depressive disorder, recurrent, unspecified; Z88.0 Allergy status to penicillin; Z88.8 Allergy status to other drugs, medicaments and biological substances; Z79.899 Other long term (current) drug therapy
CPT/HCPCS: 36415; 74176; 80048; 80076; 81001; 82550; 82553; 82668; 82728; 83690; 84439; 84443; 84484; 85025; 99284; Q0162; Q9967

== ENCOUNTER 2021-09-27 01:36 | Emergency (ER) | payer OTHER, MEDICAID ==
[~2021-09-27] VITALS: Ht 160 cm; Wt 71.7 kg
[~2021-09-27 01:36] MED LIST changes: +PROM25TA12 PO; -QUET50TA3; -QUET50TA3 PO; +QUET50TA4; +QUET50TA4 PO; +TIZA10TA; -TIZA4TAB4; +TRAM50TA2 PO
[2021-09-27] MEDS ORDERED: D-AMPHETAMINE (01:58)
[2021-09-27] MEDS ORDERED: QUET100T2 (01:58)
[2021-09-27] MEDS ORDERED: SUMA100T2 (01:58)
[2021-09-27] MEDS ORDERED: ONDANSETRON 4 MG TAB PO ONE (06:35)
[2021-09-27 07:22] VITALS: BP 158/98
[2021-09-27] MEDS ORDERED: ACETAMINOPHEN 325 MG TAB PO ONE (07:35)
[2021-09-27] MEDS ORDERED: CLIN150C17 PO (07:39)
== END 2021-09-27 08:13 | disposition home or self-care (01) ==
LOC: M ED 01:36
DX: S96.211A Strain of intrinsic muscle and tendon at ankle and foot level, right foot, initial encounter (principal); L03.031 Cellulitis of right toe; I10 Essential (primary) hypertension; Y92.9 Unspecified place or not applicable; Y93.9 Activity, unspecified; Y99.9 Unspecified external cause status; Z79.899 Other long term (current) drug therapy; Z88.0 Allergy status to penicillin; Z88.6 Allergy status to analgesic agent

== ENCOUNTER 2021-10-26 18:44 | Emergency (ER) | payer OTHER, MEDICAID ==
[~2021-10-26] VITALS: Ht 160 cm; Wt 68.2 kg
[~2021-10-26 18:44] MED LIST changes: +CLIN150C17 PO; +D-AMPHETAMINE; +QUET100T2; +SUMA100T2
[2021-10-26 18:53] VITALS: BP 148/86
[2021-10-26] MEDS ORDERED: TIZA10TA (21:14)
[2021-10-26 21:44] LABS: BASO # 0.1 10^3/uL (0.0-0.2); BASO % 0.7 % (0.0-1.0); EOS # 0.1 10^3/uL (0.0-0.5); EOS % 1.1 % (0.0-3.0); HEMATOCRIT 39.1 % (36.0-47.0); HEMOGLOBIN 12.6 g/dl (12.0-15.5); LYMPH # 2.3 10^3/uL (1.5-5.0); LYMPH % 24.7 % (24.0-44.0); MEAN CORPUSCULAR HEMOGLOBIN 27.3 pg (27.0-33.0); MEAN CORPUSCULAR HGB CONC 32.2 g/dl (32.0-36.5); MEAN CORPUSCULAR VOLUME 84.6 fl (80.0-96.0); MONO # 0.8 10^3/uL (0.0-0.8); MONO % 8.2 % (2.0-8.0); NEUTROPHILS # 6.2 10^3/uL (1.5-8.5); NEUTROPHILS % 65.1 % (36.0-66.0); PLATELET COUNT, AUTOMATED 503 10^3/uL (150-450); RED BLOOD COUNT 4.62 10^6/uL (4.00-5.40); WHITE BLOOD COUNT 9.5 10^3/uL (4.0-10.0)
[2021-10-26] MEDS ORDERED: DOXYCYCLINE HYCLATE 100MG TABLET PO ONE (22:00)
[2021-10-26] MEDS ORDERED: DOXY-443 PO (22:11)
== END 2021-10-26 22:21 | disposition home or self-care (01) ==
LOC: M ED 18:44 → EDBD 18:44 → M ED 22:21
DX: L03.115 Cellulitis of right lower limb (principal); L03.116 Cellulitis of left lower limb; I10 Essential (primary) hypertension; F33.1 Major depressive disorder, recurrent, moderate; Z79.899 Other long term (current) drug therapy; Z88.0 Allergy status to penicillin; Z88.1 Allergy status to other antibiotic agents; Z88.5 Allergy status to narcotic agent

== ENCOUNTER 2021-11-30 21:04 | Emergency (ER) | payer OTHER, MEDICAID ==
[~2021-11-30] VITALS: Ht 160 cm; Wt 68.2 kg
[2021-11-30 21:04] VITALS: BP 155/94
[~2021-11-30 21:04] MED LIST changes: +DOXY-443 PO
== END 2021-11-30 23:20 | disposition left against medical advice (07) ==
LOC: M ED 21:04
DX: Z53.21 Procedure and treatment not carried out due to patient leaving prior to being seen by health care provider (principal)

== ENCOUNTER 2021-12-21 12:42 | Emergency (ER) | payer OTHER, MEDICAID ==
[~2021-12-21] VITALS: Ht 160 cm; Wt 69.2 kg
[2021-12-21 14:31] LABS: BASO # 0.1 10^3/uL (0.0-0.2); BASO % 0.7 % (0.0-1.0); EOS # 0.4 10^3/uL (0.0-0.5); EOS % 3.5 % (0.0-3.0); HEMATOCRIT 37.5 % (36.0-47.0); HEMOGLOBIN 12.1 g/dl (12.0-15.5); LYMPH # 2.1 10^3/uL (1.5-5.0); LYMPH % 20.8 % (24.0-44.0); MEAN CORPUSCULAR HEMOGLOBIN 26.8 pg (27.0-33.0); MEAN CORPUSCULAR HGB CONC 32.3 g/dl (32.0-36.5); MEAN CORPUSCULAR VOLUME 83.1 fl (80.0-96.0); MONO # 0.5 10^3/uL (0.0-0.8); MONO % 5.1 % (2.0-8.0); NEUTROPHILS % 69.6 % (36.0-66.0); PLATELET COUNT, AUTOMATED 447 10^3/uL (150-450); RED BLOOD COUNT 4.51 10^6/uL (4.00-5.40); WHITE BLOOD COUNT 10.1 10^3/uL (4.0-10.0)
[2021-12-21 15:02] LABS: ERYTHROCYTE SEDIMENTATION RATE 57 mm/hr (0-30)
[2021-12-21 15:07] LABS: BLOOD UREA NITROGEN 15 MG/DL (7-18); C REACTIVE PROTEIN QUANTITATIV 1.94 MG/DL (0.00-0.30); CALCIUM LEVEL 9.6 MG/DL (8.5-10.1); CARBON DIOXIDE LEVEL 17 MEQ/L (21-32); CHLORIDE LEVEL 114 MEQ/L (98-107); CREATININE FOR GFR 1.01 MG/DL (0.55-1.30); FREE T4 0.91 NG/DL (0.76-1.46); GLOMERULAR FILTRATION RATE > 60.0 (>51); GLUCOSE, FASTING 100 MG/DL (70-100); POTASSIUM SERUM 3.4 MEQ/L (3.5-5.1); SODIUM LEVEL 140 MEQ/L (136-145)
[2021-12-21] MEDS ORDERED: DOXY-443 PO (15:07)
[2021-12-21 15:17] VITALS: BP 150/93
== END 2021-12-21 15:30 | disposition home or self-care (01) ==
LOC: M ED 12:42
DX: L66.2 Folliculitis decalvans (principal); I10 Essential (primary) hypertension; Z88.0 Allergy status to penicillin; Z88.1 Allergy status to other antibiotic agents; Z88.5 Allergy status to narcotic agent; Z79.2 Long term (current) use of antibiotics; Z79.899 Other long term (current) drug therapy

== ENCOUNTER 2022-05-04 14:14 | Emergency (ER) | payer OTHER, MEDICAID ==
[~2022-05-04] VITALS: Ht 160 cm; Wt 68.2 kg
[2022-05-04 14:46] VITALS: O2SAT 98
[2022-05-04] MEDS ORDERED: TOPI50TA9 (14:46)
[2022-05-04 14:49] VITALS: BP 198/101
== END 2022-05-04 16:57 | disposition left against medical advice (07) ==
LOC: M ED 14:14
DX: Z53.21 Procedure and treatment not carried out due to patient leaving prior to being seen by health care provider (principal)

== ENCOUNTER → 2022-06-09 | Outpatient (CLI) | payer OTHER, MEDICAID ==
[~2022-06-09] MED LIST changes: +TOPI50TA9
== END ==
LOC: M OUTALCOH 07:59
PROVIDERS: ATTEND Psychiatry & Neurology Psychiatry
DX: Z13.89 Encounter for screening for other disorder (principal)

== ENCOUNTER 2022-07-08 09:26 | Outpatient (RCR) | payer OTHER, MEDICAID | END 2022-07-10 | LOC: M OUTALCOH 09:26 | PROVIDERS: ATTEND Psychiatry & Neurology Psychiatry | DX: F10.20 Alcohol dependence, uncomplicated (principal); F17.200 Nicotine dependence, unspecified, uncomplicated ==

== ENCOUNTER 2023-07-10 02:21 | Emergency (ER) | payer OTHER, MEDICAID ==
[~2023-07-10] VITALS: Ht 160 cm; Wt 68.4 kg
[~2023-07-10 02:21] MED LIST changes: +TOPI-21; +TOPI-21 PO; -TOPI50TA9; -TOPI50TA9 PO
[2023-07-10 02:33] VITALS: TEMP 97.4
[2023-07-10 03:20] LABS: BASO # 0.1 10^3/uL (0.0-0.2); BASO % 0.5 % (0.0-1.0); EOS # 0.4 10^3/uL (0.0-0.5); EOS % 1.8 % (0.0-3.0); HEMATOCRIT 48.5 % (36.0-47.0); HEMOGLOBIN 16.6 g/dl (12.0-15.5); LYMPH # 1.8 10^3/uL (1.5-5.0); MEAN CORPUSCULAR HEMOGLOBIN 29.7 pg (27.0-33.0); MEAN CORPUSCULAR HGB CONC 34.2 g/dl (32.0-36.5); MEAN CORPUSCULAR VOLUME 86.9 fl (80.0-96.0); MONO # 1.2 10^3/uL (0.0-0.8); MONO % 5.7 % (2.0-8.0); NEUTROPHILS # 16.9 10^3/uL (1.5-8.5); NEUTROPHILS % 82.6 % (36.0-66.0); PLATELET COUNT, AUTOMATED 443 10^3/uL (150-450); RED BLOOD COUNT 5.58 10^6/uL (4.00-5.40); WHITE BLOOD COUNT 20.5 10^3/uL (4.0-10.0)
[2023-07-10 03:42] LABS: LIPASE 33 U/L (12-53)
[2023-07-10 03:50] LABS: ALBUMIN 4.5 G/DL (3.2-5.2); ALKALINE PHOSPHATASE 132 U/L (46-116); ALT/SGPT 9 U/L (7.0-40); AST/SGOT 15 U/L (<34); BILIRUBIN,DIRECT 0.2 MG/DL (<0.4); BILIRUBIN,TOTAL 0.6 MG/DL (0.3-1.2); BLOOD UREA NITROGEN 21 MG/DL (9-23); CALCIUM LEVEL 9.8 MG/DL (8.5-10.1); CARBON DIOXIDE LEVEL 20 MMOL/L (20-31); CHLORIDE LEVEL 109 MMOL/L (98-107); CREATININE FOR GFR 0.77 MG/DL (0.55-1.30); GLOMERULAR FILTRATION RATE > 60.0 (>51); GLUCOSE, FASTING 105 MG/DL (60-100); POTASSIUM SERUM 3.9 MMOL/L (3.5-5.1); SODIUM LEVEL 138 MMOL/L (136-145)
[2023-07-10] MEDS ORDERED: NS 1,000 ML IV ONE ×2 (03:55→06:20)
[2023-07-10] MEDS ORDERED: KETOROLAC 30 MG/ML 1ML VIAL IV ONE (06:20)
[2023-07-10] MEDS ORDERED: METOCLOPRAMIDE INJ 10MG/2ML VIAL IV ONE (06:20)
[2023-07-10] MEDS ORDERED: diphenhydrAMINE 50MG/ML VIAL IV ONE (06:20)
[2023-07-10 06:30] VITALS: BP 137/88
[2023-07-10] MEDS ORDERED: ISOVUE-370 76% 100ML VIAL As Ordered ONE (06:30)
[2023-07-10 06:51] VITALS: O2SAT 100
[2023-07-10 06:57] LABS: APPEARANCE, URINE CLEAR (CLEAR); BACTERIA, URINE AUTO NEGATIVE (NEGATIVE); BILIRUBIN, URINE AUTO NEGATIVE (NEGATIVE); BLOOD, URINE BLOOD NEGATIVE (NEGATIVE); COLOR, URINE YELLOW (YELLOW); GLUCOSE, URINE (UA) AUTO NEGATIVE (NEGATIVE); KETONE, URINE AUTO NEGATIVE (NEGATIVE); LEUKOCYTE ESTERASE, URINE AUTO NEGATIVE (NEGATIVE); MUCUS, URINE SMALL (NEGATIVE); NITRITE, URINE AUTO NEGATIVE (NEGATIVE); PROTEIN, URINE AUTO NEGATIVE (NEGATIVE); RBC, URINE AUTO 0 /HPF (0-3); SPECIFIC GRAVITY URINE AUTO 1.018 (1.002-1.035); SQUAMOUS EPITHELIAL CELL UR AU 0 /HPF (0-6); WBC, URINE AUTO 0 /HPF (0-3)
== END 2023-07-10 10:08 | disposition home or self-care (01) ==
LOC: EDBD 02:21 → M ED 02:21
DX: R19.7 Diarrhea, unspecified (principal); Z88.0 Allergy status to penicillin; Z88.1 Allergy status to other antibiotic agents; Z88.8 Allergy status to other drugs, medicaments and biological substances; E03.9 Hypothyroidism, unspecified; Z79.899 Other long term (current) drug therapy; Z79.890 Hormone replacement therapy
CPT/HCPCS: 74177; 80048; 80076; 81001; 83605; 83690; 85025; 87040; 87486; 87507; 87581; 87633; 87798; 96361; 96374; 96375; 99285; J1200; J1885; J2765; Q9967

== ENCOUNTER 2023-07-16 13:08 | Emergency (ER) | payer OTHER, MEDICAID ==
[~2023-07-16] VITALS: Ht 160 cm; Wt 69.2 kg
[2023-07-16 16:36] VITALS: BP 158/104
[2023-07-16] MEDS ORDERED: IBUP-1022 PO (16:46)
[2023-07-16 16:52] VITALS: TEMP 98; O2SAT 100
== END 2023-07-16 17:06 | disposition home or self-care (01) ==
LOC: M ED 13:08
DX: S60.222A Contusion of left hand, initial encounter (principal); S60.212A Contusion of left wrist, initial encounter; W23.1XXA Caught, crushed, jammed, or pinched between stationary objects, initial encounter; E78.5 Hyperlipidemia, unspecified; M79.7 Fibromyalgia; I10 Essential (primary) hypertension; G43.909 Migraine, unspecified, not intractable, without status migrainosus; Y92.009 Unspecified place in unspecified non-institutional (private) residence as the place of occurrence of the external cause; Y93.89 Activity, other specified; Y99.9 Unspecified external cause status; Z88.0 Allergy status to penicillin; Z88.1 Allergy status to other antibiotic agents; Z88.5 Allergy status to narcotic agent; Z79.899 Other long term (current) drug therapy; Z79.1 Long term (current) use of non-steroidal anti-inflammatories (NSAID)

== ENCOUNTER 2024-01-13 02:57 | Emergency (ER) | payer OTHER, MEDICAID ==
[~2024-01-13 02:57] MED LIST changes: +DOXY-323 PO; -DOXY-443 PO; +IBUP-1022 PO; +KLON1TAB13 PO; +ONDA-282 PO; -ONDA4TAB6 PO
[2024-01-13 03:41] LABS: BASO # 0.1 10^3/uL (0.0-0.2); BASO % 1.3 % (0.0-1.0); EOS # 0.2 10^3/uL (0.0-0.5); EOS % 2.3 % (0.0-3.0); HEMATOCRIT 43.2 % (36.0-47.0); HEMOGLOBIN 14.7 g/dl (12.0-15.5); LYMPH # 2.6 10^3/uL (1.5-5.0); LYMPH % 37.2 % (24.0-44.0); MEAN CORPUSCULAR HEMOGLOBIN 30.5 pg (27.0-33.0); MEAN CORPUSCULAR VOLUME 89.6 fl (80.0-96.0); MONO # 0.3 10^3/uL (0.0-0.8); MONO % 4.4 % (2.0-8.0); NEUTROPHILS # 3.8 10^3/uL (1.5-8.5); NEUTROPHILS % 54.7 % (36.0-66.0); PLATELET COUNT, AUTOMATED 344 10^3/uL (150-450); RED BLOOD COUNT 4.82 10^6/uL (4.00-5.40)
[2024-01-13 03:46] VITALS: TEMP 97.5
[2024-01-13 03:46] LABS: ABG BASE EXCESS -8.8 (-2.0-2.0); ABG HCO3 16.2 MMOL/L (22.0-26.0); ABG O2 SATURATION 94.2 % (95.0-99.0); ABG PARTIAL PRESSURE CO2 32.7 mmHg (35.0-45.0); ABG PARTIAL PRESSURE O2 75.9 mmHg (75.0-100.0); ABG STANDARD HCO3 17.4 MMOL/L. (22.0-26.0); ABG TOTAL CO2 17.2 MMOL/L (22.0-29.0); ABG pH (ARTERIAL) 7.313 UNITS (7.350-7.450)
[2024-01-13] MEDS: NS 1,000 ML IV ONE (03:58)
[2024-01-13 04:01] LABS: SALICYLATE LEVEL < 3.0 MG/DL (<30)
[2024-01-13 04:02] LABS: ALBUMIN 3.6 G/DL (3.2-5.2); ALKALINE PHOSPHATASE 113 U/L (46-116); ALT/SGPT 15 U/L (7.0-40); AST/SGOT 17 U/L (<34); BILIRUBIN,DIRECT < 0.1 MG/DL (<0.4); BILIRUBIN,TOTAL 0.2 MG/DL (0.3-1.2); BLOOD UREA NITROGEN 12 MG/DL (9-23); CARBON DIOXIDE LEVEL 17 MMOL/L (20-31); CHLORIDE LEVEL 110 MMOL/L (98-107); CK-MB VALUE MASS < 1.0 NG/ML (<3.6); CREATININE FOR GFR 0.96 MG/DL (0.55-1.30); GLOMERULAR FILTRATION RATE > 60.0 (>51); GLUCOSE, FASTING 105 MG/DL (60-100); POTASSIUM SERUM 3.7 MMOL/L (3.5-5.1); SODIUM LEVEL 137 MMOL/L (136-145); TOTAL PROTEIN 6.7 G/DL (5.7-8.2)
[2024-01-13 04:03] LABS: THYROID STIMULATING HORMONE 9.352 uIU/ML (0.55-4.78)
[2024-01-13 04:05] LABS: OSMOLALITY SERUM 341 MOSM/KG (275-295)
[2024-01-13 04:06] LABS: CPK CREATINE PHOSPHOKINASE 62 U/L (34-145); MB/CK RELATIVE INDEX 1.61 (< OR =4)
[2024-01-13 05:46] LABS: FREE T4 0.66 NG/DL (0.89-1.76)
[2024-01-13 08:00] LABS: AMPHETAMINES LEVEL URINE NEGATIVE (NEGATIVE); BARBITURATES URINE NEGATIVE (NEGATIVE); BENZODIAZEPINES URINE NEGATIVE (NEGATIVE); COCAINE METABOLITE URINE NEGATIVE (NEGATIVE); METHADONE URINE NEGATIVE (NEGATIVE); OPIATES URINE NEGATIVE (NEGATIVE)
[2024-01-13 08:01] LABS: CANNABINOIDS URINE NEGATIVE (NEGATIVE); PHENCYCLIDINE URINE NEGATIVE (NEGATIVE)
[2024-01-13 09:30] VITALS: BP 103/64
[2024-01-13 09:45] VITALS: O2SAT 88
== END 2024-01-13 09:49 | disposition home or self-care (01) ==
LOC: M ED 02:57
DX: F10.129 Alcohol abuse with intoxication, unspecified (principal); E03.9 Hypothyroidism, unspecified; F32.A Depression, unspecified; Z88.0 Allergy status to penicillin; Z88.1 Allergy status to other antibiotic agents; Z88.5 Allergy status to narcotic agent; Z88.8 Allergy status to other drugs, medicaments and biological substances; Z79.899 Other long term (current) drug therapy; Z79.1 Long term (current) use of non-steroidal anti-inflammatories (NSAID)

== ENCOUNTER 2024-02-03 01:25 | Emergency (ER) | payer OTHER, MEDICAID ==
[~2024-02-03] VITALS: Ht 160 cm; Wt 76.4 kg
[2024-02-03 03:00] LABS: IONIZED CALCIUM 4.8 MG/DL (4.5-5.3)
[2024-02-03 03:06] LABS: BASO # 0.1 10^3/uL (0.0-0.2); EOS # 0.2 10^3/uL (0.0-0.5); HEMATOCRIT 45.6 % (36.0-47.0); HEMOGLOBIN 15.3 g/dl (12.0-15.5); LYMPH # 1.9 10^3/uL (1.5-5.0); LYMPH % 21.2 % (24.0-44.0); MEAN CORPUSCULAR HEMOGLOBIN 30.2 pg (27.0-33.0); MEAN CORPUSCULAR HGB CONC 33.6 g/dl (32.0-36.5); MEAN CORPUSCULAR VOLUME 90.1 fl (80.0-96.0); MONO # 0.7 10^3/uL (0.0-0.8); NEUTROPHILS # 5.9 10^3/uL (1.5-8.5); NEUTROPHILS % 67.6 % (36.0-66.0); PLATELET COUNT, AUTOMATED 329 10^3/uL (150-450); RED BLOOD COUNT 5.06 10^6/uL (4.00-5.40); WHITE BLOOD COUNT 8.7 10^3/uL (4.0-10.0)
[2024-02-03 03:32] LABS: ALKALINE PHOSPHATASE 121 U/L (46-116); ALT/SGPT 13 U/L (7.0-40); AST/SGOT < 8 U/L (<34); BILIRUBIN,DIRECT 0.2 MG/DL (<0.4); BILIRUBIN,TOTAL 0.8 MG/DL (0.3-1.2); BLOOD UREA NITROGEN 15 MG/DL (9-23); CALCIUM LEVEL 9.8 MG/DL (8.5-10.1); CARBON DIOXIDE LEVEL 22 MMOL/L (20-31); CHLORIDE LEVEL 111 MMOL/L (98-107); CREATININE FOR GFR 0.91 MG/DL (0.55-1.30); GLOMERULAR FILTRATION RATE > 60.0 (>51); GLUCOSE, FASTING 107 MG/DL (60-100); MAGNESIUM LEVEL 2.3 MG/DL (1.8-2.4); PHOSPHORUS LEVEL 2.6 MG/DL (2.5-4.9); POTASSIUM SERUM 4.2 MMOL/L (3.5-5.1); SODIUM LEVEL 139 MMOL/L (136-145); TOTAL PROTEIN 7.4 G/DL (5.7-8.2)
[2024-02-03] MEDS ORDERED: CLON1TAB17 PO ×2 (07:01→09:07)
[2024-02-03] MEDS: clonazePAM 1 MG TAB PO ONE (07:14)
[2024-02-03 07:40] VITALS: BP 136/94; TEMP 97.8; O2SAT 97
== END 2024-02-03 07:43 | disposition home or self-care (01) ==
LOC: M ED 01:25
DX: G40.909 Epilepsy, unspecified, not intractable, without status epilepticus (principal); F13.239 Sedative, hypnotic or anxiolytic dependence with withdrawal, unspecified; E03.9 Hypothyroidism, unspecified; F41.9 Anxiety disorder, unspecified; F17.210 Nicotine dependence, cigarettes, uncomplicated; Z88.0 Allergy status to penicillin; Z88.1 Allergy status to other antibiotic agents; Z88.8 Allergy status to other drugs, medicaments and biological substances; Z79.1 Long term (current) use of non-steroidal anti-inflammatories (NSAID); Z79.899 Other long term (current) drug therapy

== ENCOUNTER 2024-05-22 04:39 | Inpatient (IN) | payer OTHER, MEDICAID ==
[~2024-05-22] VITALS: Ht 160 cm; Wt 81.8 kg
[~2024-05-22 04:39] MED LIST changes: +CLON1TAB17 PO; -DOXY-323 PO; +DOXY-441 PO; -SUMA100T2; +SUMA100T2 PO; -TOPI-21
[2024-05-22 05:35] LABS: BASO # 0.1 10^3/uL (0.0-0.2); BASO % 1.4 % (0.0-1.0); EOS # 0.1 10^3/uL (0.0-0.5); EOS % 1.9 % (0.0-3.0); HEMATOCRIT 43.7 % (36.0-47.0); HEMOGLOBIN 14.8 g/dl (12.0-15.5); LYMPH # 1.7 10^3/uL (1.5-5.0); LYMPH % 33.1 % (24.0-44.0); MEAN CORPUSCULAR HEMOGLOBIN 29.7 pg (27.0-33.0); MEAN CORPUSCULAR HGB CONC 33.9 g/dl (32.0-36.5); MEAN CORPUSCULAR VOLUME 87.6 fl (80.0-96.0); MONO # 0.3 10^3/uL (0.0-0.8); MONO % 5.4 % (2.0-8.0); NEUTROPHILS % 57.8 % (36.0-66.0); PLATELET COUNT, AUTOMATED 300 10^3/uL (150-450); RED BLOOD COUNT 4.99 10^6/uL (4.00-5.40); WHITE BLOOD COUNT 5.2 10^3/uL (4.0-10.0)
[2024-05-22 06:11] LABS: LIPASE 31 U/L (12-53)
[2024-05-22 06:12] LABS: ETHYL ALCOHOL (ETHANOL) 0.215 % (0.000-0.010); SALICYLATE LEVEL < 3.0 MG/DL (<30)
[2024-05-22 06:13] LABS: ALBUMIN 3.5 G/DL (3.2-5.2); ALKALINE PHOSPHATASE 112 U/L (35-104); ALT/SGPT 13 U/L (7.0-40); AST/SGOT 15 U/L (<34); BILIRUBIN,DIRECT < 0.1 MG/DL (<0.4); BILIRUBIN,TOTAL 0.3 MG/DL (0.3-1.2); BLOOD UREA NITROGEN 10 MG/DL (9-23); CALCIUM LEVEL 8.9 MG/DL (8.5-10.1); CARBON DIOXIDE LEVEL 23 MMOL/L (20-31); CHLORIDE LEVEL 106 MMOL/L (98-107); CREATININE FOR GFR 0.72 MG/DL (0.55-1.30); GLOMERULAR FILTRATION RATE > 60.0 (>51); GLUCOSE, FASTING 114 MG/DL (60-100); POTASSIUM SERUM 3.3 MMOL/L (3.5-5.1); SODIUM LEVEL 139 MMOL/L (136-145)
[2024-05-22 06:15] LABS: THYROID STIMULATING HORMONE 3.176 uIU/ML (0.55-4.78)
[2024-05-22 06:35] LABS: BARBITURATES URINE NEGATIVE (NEGATIVE); BENZODIAZEPINES URINE NEGATIVE (NEGATIVE); CANNABINOIDS URINE NEGATIVE (NEGATIVE); COCAINE METABOLITE URINE NEGATIVE (NEGATIVE); METHADONE URINE NEGATIVE (NEGATIVE); OPIATES URINE NEGATIVE (NEGATIVE); PHENCYCLIDINE URINE NEGATIVE (NEGATIVE)
[2024-05-22 06:42] LABS: AMPHETAMINES LEVEL URINE POSITIVE (NEGATIVE)
[2024-05-22] MEDS ORDERED: LORazepam 2 MG TAB PO PRN (07:10)
[2024-05-22] MEDS ORDERED: LEVO150C PO (08:36)
[2024-05-22] MEDS ORDERED: CLON1TAB8 PO (08:36)
[2024-05-22] MEDS ORDERED: IBUP1TAB6 PO (08:36)
[2024-05-22] MEDS ORDERED: HOME MED LIST COMPLETE! XX SCH (08:40)
[2024-05-22] MEDS: THIAMINE 100 MG TAB PO SCH (09:09)
[2024-05-22] MEDS: FOLIC ACID 1MG TAB PO SCH (09:09)
[2024-05-22] MEDS: MULTIVITAMINS/MINERALS THERAP 1 TAB PO SCH (09:09)
[2024-05-22] MEDS ORDERED: MOM 30ML SUSPENSION UDC PO PRN (13:35)
[2024-05-22] MEDS ORDERED: MAALOX 30 ML SUSP *UDC PO PRN (13:35)
[2024-05-22] MEDS ORDERED: IBUPROFEN 400MG TAB PO PRN (13:35)
[2024-05-22 14:48] VITALS: BP 140/65; TEMP 98.2; O2SAT 97
[2024-05-22] MEDS: ACETAMINOPHEN 325 MG TAB PO PRN (17:46)
[2024-05-22] MEDS: clonazePAM 1 MG TAB PO ONE ×2 (18:12→20:46)
[2024-05-22 21:28] VITALS: BP 146/73
[2024-05-23 06:00] VITALS: BP 149/91
[2024-05-23 06:27] VITALS: BP 149/91; TEMP 97.1; O2SAT 100
[2024-05-23] MEDS: THIAMINE 100 MG TAB PO SCH (08:54)
[2024-05-23] MEDS: FOLIC ACID 1MG TAB PO SCH (08:54)
[2024-05-23] MEDS: MULTIVITAMINS/MINERALS THERAP 1 TAB PO SCH (08:54)
[2024-05-23] MEDS ORDERED: IBUPROFEN 600MG TAB PO PRN (09:30)
[2024-05-23] MEDS: TOPIRAMATE (TopAMAX) 25 MG TAB PO SCH (09:48)
[2024-05-23 09:51] VITALS: BP 160/106
[2024-05-23] MEDS: LORazepam 2 MG TAB PO PRN (10:04)
[2024-05-23] MEDS: clonazePAM 1 MG TAB PO SCH (10:20)
[2024-05-23] MEDS: POTASSIUM CHLORIDE 10MEQ SR TABLET PO ONE (11:57)
[2024-05-23] MEDS: LEVOTHYROXINE 150MCG TABLET (0.15MG) PO SCH (11:57)
[2024-05-23 11:58] VITALS: BP 169/107; TEMP 98.1; O2SAT 96
[2024-05-23] MEDS: amLODIPine 5 MG TAB PO ONE (12:48)
[2024-05-23] MEDS: SUMAtriptan SUCCINATE 25 MG TAB PO PRN (13:48)
[2024-05-23 14:00] VITALS: BP 158/101; TEMP 98.7; O2SAT 97
[2024-05-23 18:22] VITALS: BP 140/90
[2024-05-24 06:32] VITALS: BP 150/96; TEMP 97; O2SAT 98
[2024-05-24 08:57] VITALS: BP 140/74
[2024-05-24] MEDS: amLODIPine 5 MG TAB PO SCH (08:58)
[2024-05-24 10:30] VITALS: BP 144/82
[2024-05-24 15:24] VITALS: BP 144/82; TEMP 98.2; O2SAT 99
[2024-05-24 22:00] VITALS: BP 138/84
[2024-05-24 23:25] VITALS: BP 138/84; TEMP 97.9; O2SAT 100
[2024-05-25 08:32] VITALS: BP 138/91
[2024-05-25 14:00] VITALS: BP 140/70
[2024-05-25 15:05] VITALS: BP 134/88; TEMP 98.9; O2SAT 99
[2024-05-25 22:00] VITALS: BP 130/84
[2024-05-25 22:10] VITALS: BP 130/84; TEMP 98.2; O2SAT 100
[2024-05-26 06:00] VITALS: BP 142/83
[2024-05-26 06:55] VITALS: BP 142/83; TEMP 98.6; O2SAT 100
[2024-05-26 08:51] VITALS: BP 160/108
[2024-05-26 15:00] VITALS: BP 138/92; TEMP 98.5; O2SAT 98
[2024-05-26] MEDS: diphenhydrAMINE 25MG CAP PO PRN (20:34)
[2024-05-27 06:47] VITALS: BP 138/70; TEMP 97.1; O2SAT 98
[2024-05-27 15:25] VITALS: BP 123/87; TEMP 98.8; O2SAT 98
[2024-05-28 06:26] VITALS: BP 130/90; TEMP 97.4; O2SAT 100
[2024-05-28 08:52] VITALS: BP 178/98
[2024-05-28] MEDS ORDERED: CLON1TAB8 PO (09:15)
[2024-05-28] MEDS ORDERED: AMLO1TAB24 PO (09:15)
== END 2024-05-28 11:56 | disposition home or self-care (01) | DRG 881 ==
LOC: M ED 04:39 → EDBD 04:39 → M ED INP 13:33 → M PSY 15:51
PROVIDERS: ADMIT Psychiatry & Neurology Child & Adolescent Psychiatry; ATTEND Psychiatry & Neurology Child & Adolescent Psychiatry
DX: F32.9 Major depressive disorder, single episode, unspecified (principal); F41.8 Other specified anxiety disorders; F43.10 Post-traumatic stress disorder, unspecified; F60.3 Borderline personality disorder; F40.00 Agoraphobia, unspecified; F10.20 Alcohol dependence, uncomplicated; Z63.0 Problems in relationship with spouse or partner; Z59.9 Problem related to housing and economic circumstances, unspecified; Z88.0 Allergy status to penicillin; Z88.8 Allergy status to other drugs, medicaments and biological substances; Z79.899 Other long term (current) drug therapy; Z62.810 Personal history of physical and sexual abuse in childhood; M79.7 Fibromyalgia; E03.9 Hypothyroidism, unspecified; G43.909 Migraine, unspecified, not intractable, without status migrainosus; M06.9 Rheumatoid arthritis, unspecified; G89.29 Other chronic pain; F17.290 Nicotine dependence, other tobacco product, uncomplicated; R19.7 Diarrhea, unspecified; I10 Essential (primary) hypertension; E87.6 Hypokalemia

== ENCOUNTER 2024-09-28 20:57 | Observation (INO) | payer OTHER, MEDICAID ==
[~2024-09-28] VITALS: Ht 162.6 cm; Wt 65.9 kg
[~2024-09-28 20:57] MED LIST changes: +AMLO1TAB24 PO; +CLON1TAB8 PO; +IBUP1TAB6 PO; +LEVO150C PO
[2024-09-28 21:51] LABS: KETONE, URINE AUTO RFX NEGATIVE (NEGATIVE); LEUKOCYTE ESTERASE UR AUTO RFX NEGATIVE (NEGATIVE); NITRITE, URINE AUTO RFX NEGATIVE (NEGATIVE); RBC, URINE AUTO RFX 0 /HPF (0-3); SQUAM EPITHELIAL CELL UR AURFX 0 /HPF (0-6); WBC, URINE AUTO RFX 0 /HPF (0-3)
[2024-09-29 00:41] LABS: BASO # 0.1 10^3/uL (0.0-0.2); BASO % 0.8 % (0.0-1.0); EOS # 0.2 10^3/uL (0.0-0.5); EOS % 2.3 % (0.0-3.0); HEMATOCRIT 43.3 % (36.0-47.0); HEMOGLOBIN 14.3 g/dl (12.0-15.5); LYMPH # 2.3 10^3/uL (1.5-5.0); LYMPH % 27.5 % (24.0-44.0); MEAN CORPUSCULAR HEMOGLOBIN 29.4 pg (27.0-33.0); MEAN CORPUSCULAR VOLUME 88.9 fl (80.0-96.0); MONO # 0.6 10^3/uL (0.0-0.8); MONO % 6.7 % (2.0-8.0); NEUTROPHILS # 5.2 10^3/uL (1.5-8.5); NEUTROPHILS % 62.5 % (36.0-66.0); PLATELET COUNT, AUTOMATED 336 10^3/uL (150-450); RED BLOOD COUNT 4.87 10^6/uL (4.00-5.40); WHITE BLOOD COUNT 8.3 10^3/uL (4.0-10.0)
[2024-09-29 00:47] LABS: LIPASE 25 U/L (12-53)
[2024-09-29 00:48] LABS: BLOOD UREA NITROGEN 18 MG/DL (9-23); CALCIUM LEVEL 9.5 MG/DL (8.5-10.1); CARBON DIOXIDE LEVEL 26 MMOL/L (20-31); CHLORIDE LEVEL 109 MMOL/L (98-107); CREATININE FOR GFR 0.86 MG/DL (0.55-1.30); GLOMERULAR FILTRATION RATE > 60.0 (>51); GLUCOSE, FASTING 88 MG/DL (60-100); SODIUM LEVEL 144 MMOL/L (136-145)
[2024-09-29 02:01] LABS: BARBITURATES URINE NEGATIVE (NEGATIVE); BENZODIAZEPINES URINE NEGATIVE (NEGATIVE); CANNABINOIDS URINE NEGATIVE (NEGATIVE); COCAINE METABOLITE URINE NEGATIVE (NEGATIVE); METHADONE URINE NEGATIVE (NEGATIVE); OPIATES URINE NEGATIVE (NEGATIVE); PHENCYCLIDINE URINE NEGATIVE (NEGATIVE)
[2024-09-29 02:21] LABS: AMPHETAMINES LEVEL URINE POSITIVE (NEGATIVE)
[2024-09-29] MEDS ORDERED: MOM 30ML SUSPENSION UDC PO PRN (04:40)
[2024-09-29] MEDS ORDERED: MAALOX 30 ML SUSP *UDC PO PRN (04:40)
[2024-09-29] MEDS ORDERED: CLON1TAB8 PO (05:48)
[2024-09-29] MEDS ORDERED: ACAM0.05 PO (05:48)
[2024-09-29] MEDS ORDERED: AMIT100TA PO (05:48)
[2024-09-29] MEDS ORDERED: HYDR100C PO (05:48)
[2024-09-29] MEDS ORDERED: TIZA10TA PO (05:48)
[2024-09-29] MEDS ORDERED: ZOLP10TA2 PO (05:48)
[2024-09-29] MEDS ORDERED: HOME MED LIST COMPLETE! XX SCH (05:55)
[2024-09-29 06:48] LABS: ETHYL ALCOHOL (ETHANOL) 0.006 % (0.000-0.010)
[2024-09-29] MEDS ORDERED: SUMAtriptan SUCCINATE 25MG TABLET PO PRN (07:40)
[2024-09-29] MEDS ORDERED: clonazePAM 1 MG TAB PO PRN (07:40)
[2024-09-29] MEDS ORDERED: tiZANidine 4 MG TAB PO PRN (07:40)
[2024-09-29] MEDS ORDERED: hydrOXYzine 50 MG TAB PO SCH (09:00)
[2024-09-29] MEDS: PANTOPRAZOLE 40MG TAB (PROTONIX) PO SCH (10:08)
[2024-09-29] MEDS: DOCUSATE SODIUM 100MG CAPSULE PO SCH (10:08)
[2024-09-29] MEDS: LEVOTHYROXINE 150MCG TABLET (0.15MG) PO ONE (10:08)
[2024-09-29] MEDS: MULTIVITAMINS/MINERALS THERAP 1 TAB PO SCH (10:08)
[2024-09-29] MEDS: ACETAMINOPHEN 325 MG TAB PO PRN (10:09)
[2024-09-29] MEDS: ACAMPROSATE CALCIUM 333MG TABLET (CAMPRAL) PO SCH (10:09)
[2024-09-29 10:37] LABS: FREE T4 1.63 NG/DL (0.89-1.76)
[2024-09-29 11:39] LABS: BASO # 0.1 10^3/uL (0.0-0.2); EOS # 0.3 10^3/uL (0.0-0.5); EOS % 3.6 % (0.0-3.0); HEMOGLOBIN 13.9 g/dl (12.0-15.5); LYMPH # 1.9 10^3/uL (1.5-5.0); MEAN CORPUSCULAR HEMOGLOBIN 29.4 pg (27.0-33.0); MEAN CORPUSCULAR HGB CONC 33.1 g/dl (32.0-36.5); MEAN CORPUSCULAR VOLUME 88.8 fl (80.0-96.0); MONO # 0.6 10^3/uL (0.0-0.8); MONO % 8.5 % (2.0-8.0); NEUTROPHILS # 4.4 10^3/uL (1.5-8.5); NEUTROPHILS % 60.5 % (36.0-66.0); PLATELET COUNT, AUTOMATED 294 10^3/uL (150-450); RED BLOOD COUNT 4.73 10^6/uL (4.00-5.40); WHITE BLOOD COUNT 7.2 10^3/uL (4.0-10.0)
[2024-09-29 12:12] LABS: ALBUMIN 3.2 G/DL (3.2-5.2); ALKALINE PHOSPHATASE 86 U/L (35-104); ALT/SGPT 12 U/L (7.0-40); AST/SGOT 11 U/L (<34); BILIRUBIN,TOTAL 0.4 MG/DL (0.3-1.2); BLOOD UREA NITROGEN 14 MG/DL (9-23); CALCIUM LEVEL 8.8 MG/DL (8.5-10.1); CARBON DIOXIDE LEVEL 22 MMOL/L (20-31); CHLORIDE LEVEL 111 MMOL/L (98-107); CREATININE FOR GFR 0.74 MG/DL (0.55-1.30); GLOMERULAR FILTRATION RATE > 60.0 (>51); GLUCOSE, FASTING 106 MG/DL (60-100); POTASSIUM SERUM 3.9 MMOL/L (3.5-5.1); SODIUM LEVEL 145 MMOL/L (136-145); TOTAL PROTEIN 6.5 G/DL (5.7-8.2)
[2024-09-29 16:56] VITALS: BP_SYST 142; BP_SYST 152; BP_SYST 158; BP_DIAS 100; BP_DIAS 114; BP_DIAS 94
[2024-09-29 17:05] VITALS: TEMP 97.7; O2SAT 93
[2024-09-29] MEDS: RIVAROXABAN 10MG TAB (XARELTO) PO SCH (18:17)
[2024-09-29] MEDS ORDERED: KETOROLAC 30 MG/ML 1ML VIAL IV PRN (18:25)
[2024-09-29] MEDS: KETOROLAC 30 MG/ML 1ML VIAL IV PRN (19:05)
[2024-09-29 20:00] VITALS: TEMP 97; O2SAT 99
[2024-09-29] MEDS: oxyCODONE 5MG TAB PO PRN (20:31)
[2024-09-29] MEDS: TOPIRAMATE (TopAMAX) 25 MG TAB PO SCH (20:32)
[2024-09-29] MEDS ORDERED: AMITRIPTYLINE 50 MG TAB PO SCH (21:00)
[2024-09-29] MEDS: KETOROLAC TROMETHAMINE 10 MG TAB PO PRN (21:48)
[2024-09-29 21:53] VITALS: BP_SYST 123; BP_SYST 145; BP_SYST 146; BP_DIAS 104; BP_DIAS 105; BP_DIAS 86
[2024-09-30 04:18] VITALS: TEMP 97.3; O2SAT 95
[2024-09-30 04:30] VITALS: BP_SYST 110; BP_SYST 119; BP_SYST 120; BP_DIAS 66; BP_DIAS 86
[2024-09-30] MEDS: LEVOTHYROXINE 150MCG TABLET (0.15MG) PO SCH (05:04)
[2024-09-30 05:35] LABS: HEMATOCRIT 46.2 % (36.0-47.0); HEMOGLOBIN 15.1 g/dl (12.0-15.5); MEAN CORPUSCULAR HEMOGLOBIN 29.4 pg (27.0-33.0); MEAN CORPUSCULAR HGB CONC 32.7 g/dl (32.0-36.5); MEAN CORPUSCULAR VOLUME 90.1 fl (80.0-96.0); PLATELET COUNT, AUTOMATED 307 10^3/uL (150-450); RED BLOOD COUNT 5.13 10^6/uL (4.00-5.40); WHITE BLOOD COUNT 7.1 10^3/uL (4.0-10.0)
[2024-09-30 05:42] LABS: ALBUMIN 3.2 G/DL (3.2-5.2); ALKALINE PHOSPHATASE 84 U/L (35-104); ALT/SGPT 13 U/L (7.0-40); AST/SGOT 17 U/L (<34); BILIRUBIN,TOTAL 0.3 MG/DL (0.3-1.2); BLOOD UREA NITROGEN 18 MG/DL (9-23); CALCIUM LEVEL 9.1 MG/DL (8.5-10.1); CARBON DIOXIDE LEVEL 22 MMOL/L (20-31); CHLORIDE LEVEL 109 MMOL/L (98-107); CREATININE FOR GFR 0.84 MG/DL (0.55-1.30); GLOMERULAR FILTRATION RATE > 60.0 (>51); GLUCOSE, FASTING 106 MG/DL (60-100); MAGNESIUM LEVEL 1.8 MG/DL (1.8-2.4); SODIUM LEVEL 141 MMOL/L (136-145); TOTAL PROTEIN 6.5 G/DL (5.7-8.2)
[2024-09-30] MEDS: LIDOCAINE 5% (LIDODERM) PATCH TD SCH (08:40)
[2024-09-30] MEDS: DULoxetine 20MG CAP (CYMBALTA) PO SCH (08:41)
[2024-09-30] MEDS ORDERED: DULO1CAP4 PO (10:30)
[2024-09-30] MEDS ORDERED: ZOLP10TA2 PO (10:30)
[2024-09-30] MEDS ORDERED: LIDO5TD TD (10:30)
[2024-09-30] MEDS ORDERED: IBUP-1114 PO (10:38)
[2024-09-30] MEDS ORDERED: TRAM50TA2 PO (10:38)
[2024-09-30] MEDS: oxyCODONE 5MG TAB PO ONE (11:10)
[2024-09-30 12:00] VITALS: BP 117/86; TEMP 97.7; O2SAT 98
[2024-09-30] MEDS: IBUPROFEN 800 MG TAB PO SCH (12:15)
[2024-09-30] MEDS: ACETAMINOPHEN 500 MG TAB PO SCH (12:38)
== END 2024-09-30 15:13 | disposition home or self-care (01) ==
LOC: M ED 20:57 → EDBD 20:57 → M ED INP 20:58 → M MSPAV 09-29 16:37
PROVIDERS: ADMIT Student in an Organized Health Care Education/Training Program; ATTEND Student in an Organized Health Care Education/Training Program
DX: R55 Syncope and collapse (principal); R91.1 Solitary pulmonary nodule; Z91.89 Other specified personal risk factors, not elsewhere classified; R07.89 Other chest pain; W19.XXXA Unspecified fall, initial encounter; M79.7 Fibromyalgia; G43.909 Migraine, unspecified, not intractable, without status migrainosus; E03.9 Hypothyroidism, unspecified; F41.9 Anxiety disorder, unspecified; F32.9 Major depressive disorder, single episode, unspecified; F10.10 Alcohol abuse, uncomplicated; M06.9 Rheumatoid arthritis, unspecified; Z79.899 Other long term (current) drug therapy
CPT/HCPCS: 36415; 70450; 71045; 72125; 80048; 80053; 80307; 81001; 82077; 82140; 83605; 83690; 83735; 84439; 84443; 85025; 85027; 87040; 87486; 87581; 87633; 87798; 93005; 93041; 94760; 97161; 99285; G0378

== ENCOUNTER 2024-11-07 13:21 | Emergency (ER) | payer OTHER, MEDICAID ==
[~2024-11-07] VITALS: Ht 160 cm; Wt 77.9 kg
[~2024-11-07 13:21] MED LIST changes: +ACAM0.05 PO; +AMIT100TA PO; +DULO1CAP4 PO; +HYDR100C PO; +IBUP-1114 PO; -LEVO150C PO; +LEVO150C2 PO; +LIDO5TD TD; +TIZA10TA PO; +ZOLP10TA2 PO
[2024-11-07] MEDS ORDERED: HYDR100C (13:27)
[2024-11-07] MEDS ORDERED: PROP10TA56 (13:27)
[2024-11-07] MEDS ORDERED: AMIT100TA (13:27)
[2024-11-07] MEDS ORDERED: ADDE30CA3 PO (15:32)
[2024-11-07] MEDS ORDERED: CLON1TAB17 PO (15:32)
[2024-11-07] MEDS ORDERED: AMIT100TA PO (15:32)
[2024-11-07] MEDS ORDERED: TIZA4CAP PO (15:32)
[2024-11-07] MEDS ORDERED: ZOLP10TA2 PO (15:32)
[2024-11-07] MEDS ORDERED: HYDR100C PO (15:32)
[2024-11-07] MEDS ORDERED: ACAM0.05 PO (15:32)
[2024-11-07 15:53] VITALS: BP 133/93; TEMP 98.4; O2SAT 96
== END 2024-11-07 16:03 | disposition home or self-care (01) ==
LOC: M ED 13:21
DX: Z76.0 Encounter for issue of repeat prescription (principal); M79.7 Fibromyalgia; I10 Essential (primary) hypertension; E78.5 Hyperlipidemia, unspecified; G43.909 Migraine, unspecified, not intractable, without status migrainosus; Z88.0 Allergy status to penicillin; Z88.1 Allergy status to other antibiotic agents; Z88.5 Allergy status to narcotic agent; Z88.8 Allergy status to other drugs, medicaments and biological substances; Z79.899 Other long term (current) drug therapy

== ENCOUNTER 2024-11-19 11:37 | Emergency (ER) | payer OTHER, MEDICAID ==
[~2024-11-19] VITALS: Ht 160 cm; Wt 74.8 kg
[~2024-11-19 11:37] MED LIST changes: +ADDE30CA3 PO; +AMIT100TA; +HYDR100C; +PROP10TA56
[2024-11-19 11:49] VITALS: TEMP 98.4
[2024-11-19 15:10] VITALS: BP 174/102; O2SAT 99
== END 2024-11-19 15:15 | disposition home or self-care (01) ==
LOC: M ED 11:37 → EDBD 11:37 → EDUNIT# 11:37 → M ED 15:15
DX: I73.9 Peripheral vascular disease, unspecified (principal); F17.200 Nicotine dependence, unspecified, uncomplicated; M79.7 Fibromyalgia; M06.9 Rheumatoid arthritis, unspecified; I10 Essential (primary) hypertension; F41.9 Anxiety disorder, unspecified; G43.909 Migraine, unspecified, not intractable, without status migrainosus; Z79.899 Other long term (current) drug therapy; Z88.0 Allergy status to penicillin; Z88.1 Allergy status to other antibiotic agents; Z88.5 Allergy status to narcotic agent; Z88.8 Allergy status to other drugs, medicaments and biological substances

== ENCOUNTER 2025-02-08 18:25 | Inpatient (IN) | payer OTHER, MEDICAID ==
[~2025-02-08] VITALS: Ht 160 cm; Wt 79.4 kg
[~2025-02-08 18:25] MED LIST changes: -AMIT100TA; +AMMO12CR4 TOP; -AMMO12CR7 TOP; +CEPH500C PO; -HYDR100C; -PROP10TA56; +PROP10TA56 PO
[2025-02-08 20:42] LABS: BASO # 0.1 10^3/uL (0.0-0.2); BASO % 0.8 % (0.0-1.0); EOS # 0.1 10^3/uL (0.0-0.5); EOS % 1.5 % (0.0-3.0); LYMPH # 2.4 10^3/uL (1.5-5.0); LYMPH % 36.4 % (24.0-44.0); MONO # 0.4 10^3/uL (0.0-0.8); MONO % 6.2 % (2.0-8.0); NEUTROPHILS # 3.6 10^3/uL (1.5-8.5); NEUTROPHILS % 54.8 % (36.0-66.0); PLATELET COUNT, AUTOMATED 316 10^3/uL (150-450)
[2025-02-08] MEDS: NS (Normal Saline) 0.9% 1,000 ML IV ONE (20:47)
[2025-02-08 21:09] LABS: CK-MB VALUE MASS 1.0 NG/ML (<3.6); ETHYL ALCOHOL (ETHANOL) 0.065 % (0.000-0.010)
[2025-02-08 21:10] LABS: CPK CREATINE PHOSPHOKINASE 73 U/L (34-145); MB/CK RELATIVE INDEX 1.36 (< OR =4)
[2025-02-08 21:11] LABS: ALT/SGPT 21 U/L (7.0-40); AST/SGOT 23 U/L (<34); CALCIUM LEVEL 9.1 MG/DL (8.5-10.1); CARBON DIOXIDE LEVEL 24 MMOL/L (20-31); CHLORIDE LEVEL 107 MMOL/L (98-107); CREATININE FOR GFR 0.95 MG/DL (0.55-1.30); GLOMERULAR FILTRATION RATE 69.9 (>51); MAGNESIUM LEVEL 2.0 MG/DL (1.8-2.4); POTASSIUM SERUM 4.1 MMOL/L (3.5-5.1); SODIUM LEVEL 145 MMOL/L (136-145)
[2025-02-08] MEDS: ACETAMINOPHEN 325 MG TAB PO PRN (22:50)
[2025-02-09 07:08] LABS: PLATELET COUNT, AUTOMATED 237 10^3/uL (150-450)
[2025-02-09 07:19] LABS: ALT/SGPT 24.0 U/L (7.0-40); AST/SGOT 32.0 U/L (<34); CALCIUM LEVEL 8.3 MG/DL (8.5-10.1); CARBON DIOXIDE LEVEL 20.0 MMOL/L (20-31); CHLORIDE LEVEL 110.0 MMOL/L (98-107); CREATININE FOR GFR 0.8 MG/DL (0.55-1.30); GLOMERULAR FILTRATION RATE 85.9 (>51); POTASSIUM SERUM 4.4 MMOL/L (3.5-5.1); SODIUM LEVEL 143.0 MMOL/L (136-145)
[2025-02-09] MEDS ORDERED: LEVO150T7 PO (08:42)
[2025-02-09] MEDS ORDERED: TOPIRAMATE 100 MG TAB PO SCH (09:00)
[2025-02-09] MEDS: FOLIC ACID 1 MG TAB PO SCH (09:26)
[2025-02-09] MEDS: NAPROXEN 250 MG TAB PO ONE (09:26)
[2025-02-09] MEDS: MULTIVITAMINS/MINERALS THERAP 1 TAB PO SCH (09:27)
[2025-02-09] MEDS: THIAMINE 100 MG TAB PO SCH (09:27)
[2025-02-09 10:56] LABS: CHOLESTEROL LEVEL 261.0 MG/DL (<200); CHOLESTEROL RISK RATIO 3.7 (<5); LDL CHOLESTEROL 161.7 MG/DL (<100); NON-HDL-C 190.5 MG/DL; TRIGLYCERIDES LEVEL 144.0 MG/DL (<150)
[2025-02-09 11:00] VITALS: BP 141/88; TEMP 97.6; O2SAT 99
[2025-02-09 12:00] VITALS: BP 143/96; TEMP 98.8; O2SAT 97
[2025-02-09] MEDS ORDERED: HYDR100C PO (13:46)
[2025-02-09] MEDS ORDERED: HOME MED LIST COMPLETE! XX SCH (13:50)
[2025-02-09] MEDS: ENOXAPARIN 40 MG/0.4 ML SYRINGE (J1650 PER 10MG) SC SCH (14:34)
[2025-02-09] MEDS: LEVOTHYROXINE 150 MCG TABLET (0.15 MG) PO SCH (15:34)
[2025-02-09] MEDS: ATORVASTATIN 20 MG TAB PO SCH (20:08)
[2025-02-09] MEDS: NAPROXEN 250 MG TAB PO PRN (20:09)
[2025-02-09] MEDS: AMITRIPTYLINE 50MG TAB PO SCH (20:11)
[2025-02-09] MEDS ORDERED: AMITRIPTYLINE 50MG TAB PO SCH (21:00)
[2025-02-09 21:05] VITALS: BP 125/86; TEMP 98.4; O2SAT 98
[2025-02-09] MEDS: FIORICET TAB PO PRN (23:53)
[2025-02-10 03:36] VITALS: BP 136/80; TEMP 98.6; O2SAT 97
[2025-02-10 07:03] LABS: THYROXINE (T4) 4.7 UG/DL (4.5-10.9); TOTAL 25(OH) VITAMIN D 11.8 NG/ML (20.0-100.0)
[2025-02-10 07:04] LABS: VITAMIN B12 LEVEL 228.0 PG/ML (211-911)
[2025-02-10] MEDS: VITAMIN D 50,000 UNITS CAPSULE (ERGOCALCIFEROL 1.25MG) PO SCH (08:38)
[2025-02-10 12:00] VITALS: BP 127/85; TEMP 98.6; O2SAT 97
[2025-02-10 15:35] VITALS: BP_SYST 126; BP_SYST 129; BP_DIAS 85; BP_DIAS 86
[2025-02-10 20:00] VITALS: BP 144/90; TEMP 98.2; O2SAT 96
[2025-02-10] MEDS: ONDANSETRON 4MG 2ML VIAL IV PRN (20:41)
[2025-02-11 04:00] VITALS: BP 117/82; TEMP 98.8; O2SAT 98
[2025-02-11 08:00] VITALS: BP 148/92; TEMP 97.7; O2SAT 98
[2025-02-11 09:28] LABS: CALCIUM LEVEL 8.5 MG/DL (8.5-10.1); CARBON DIOXIDE LEVEL 20.0 MMOL/L (20-31); CHLORIDE LEVEL 110.0 MMOL/L (98-107); CREATININE FOR GFR 0.89 MG/DL (0.55-1.30); GLOMERULAR FILTRATION RATE 75.6 (>51); MAGNESIUM LEVEL 1.6 MG/DL (1.8-2.4); POTASSIUM SERUM 5.0 MMOL/L (3.5-5.1); SODIUM LEVEL 142.0 MMOL/L (136-145)
[2025-02-11 12:00] VITALS: BP 145/99; TEMP 98.2; O2SAT 95
[2025-02-11] MEDS: MAG SULF 1GM/100ML (MAG RUN) 1 GM in IV 1 EA IV SCH (15:43)
[2025-02-11 20:00] VITALS: BP 142/100; TEMP 97.5; O2SAT 96
[2025-02-11] MEDS: SENNOSIDES/DOCUSATE SODIUM 8.6 MG/50MG TAB PO SCH (21:00)
[2025-02-11] MEDS: BISACODYL 10 MG SUPP PR SCH (21:39)
[2025-02-11] MEDS: clonazePAM 1 MG TAB PO PRN (23:46)
[2025-02-12 05:00] VITALS: BP 144/100; TEMP 98.1; O2SAT 100
[2025-02-12] MEDS ORDERED: BUTA-198 PO (11:34)
[2025-02-12] MEDS ORDERED: CLON1TAB8 PO (11:34)
[2025-02-12] MEDS ORDERED: AMPH1CAP5 PO ×2 (11:34→11:37)
[2025-02-12 11:49] VITALS: BP 150/103; TEMP 97.8; O2SAT 98
[2025-02-12] MEDS ORDERED: ERGO500029 PO (11:54)
[2025-02-12] MEDS ORDERED: ATOR1TAB21 PO (11:54)
[2025-02-12 12:09] VITALS: BP_SYST 152; BP_SYST 154; BP_DIAS 100; BP_DIAS 102
[2025-02-12 13:07] VITALS: BP 146/92
== END 2025-02-12 14:25 | disposition home or self-care (01) | DRG 312 ==
LOC: M ED 18:25 → UNDOADMOB 18:26 → M ED INP 18:26 → M MSPAV 02-09 10:59 → OBSVTOIN 02-09 12:21
PROVIDERS: ADMIT Internal Medicine; ATTEND Student in an Organized Health Care Education/Training Program
PROC: B246ZZZ Ultrasonography of Right and Left Heart (ICD-10-PCS; principal; 2025-02-11)
DX: I95.1 Orthostatic hypotension (principal); F90.9 Attention-deficit hyperactivity disorder, unspecified type; F41.9 Anxiety disorder, unspecified; E03.9 Hypothyroidism, unspecified; F32.A Depression, unspecified; R56.9 Unspecified convulsions; E78.5 Hyperlipidemia, unspecified; I10 Essential (primary) hypertension; R29.6 Repeated falls; R42 Dizziness and giddiness; F10.129 Alcohol abuse with intoxication, unspecified; E55.9 Vitamin D deficiency, unspecified; G44.229 Chronic tension-type headache, not intractable; G43.909 Migraine, unspecified, not intractable, without status migrainosus; F17.290 Nicotine dependence, other tobacco product, uncomplicated; Z79.890 Hormone replacement therapy; Z79.899 Other long term (current) drug therapy; Z88.0 Allergy status to penicillin; Z88.1 Allergy status to other antibiotic agents; Z88.5 Allergy status to narcotic agent; Z88.8 Allergy status to other drugs, medicaments and biological substances; Z90.49 Acquired absence of other specified parts of digestive tract

== ENCOUNTER 2025-03-07 20:05 | Emergency (ER) | payer OTHER, MEDICAID, MEDICARE ==
[~2025-03-07] VITALS: Ht 160 cm; Wt 80.2 kg
[~2025-03-07 20:05] MED LIST changes: +ATOR1TAB21 PO; +BUTA-198 PO; +ERGO500029 PO; -IBUP-1022 PO; -IBUP1TAB6 PO; +IBUP600T42 PO; +LEVO150T7 PO; +SFHIBU600 PO
[2025-03-07 23:00] VITALS: TEMP 97
[2025-03-07 23:14] VITALS: BP 165/104
[2025-03-07] MEDS: amLODIPine 5 MG TAB PO ONE (23:14)
[2025-03-07 23:15] VITALS: BP 171/103; O2SAT 98
== END 2025-03-07 23:20 | disposition home or self-care (01) ==
LOC: M ED 20:05
DX: F10.20 Alcohol dependence, uncomplicated (principal); I10 Essential (primary) hypertension; E55.9 Vitamin D deficiency, unspecified; F32.A Depression, unspecified; E03.9 Hypothyroidism, unspecified; G43.909 Migraine, unspecified, not intractable, without status migrainosus; M79.7 Fibromyalgia; F17.200 Nicotine dependence, unspecified, uncomplicated; Z88.0 Allergy status to penicillin; Z88.1 Allergy status to other antibiotic agents; Z88.8 Allergy status to other drugs, medicaments and biological substances; Z88.5 Allergy status to narcotic agent; Z79.899 Other long term (current) drug therapy; Z79.02 Long term (current) use of antithrombotics/antiplatelets

== ENCOUNTER → 2025-04-09 | Outpatient (REF) | payer OTHER ==
[~2025-04-09] MED LIST changes: +ZOLP10TA11; +ZOLP10TA11 PO; -ZOLP10TA2; -ZOLP10TA2 PO
[2025-04-09 18:57] LABS: VITAMIN B12 LEVEL 469 PG/ML (211-911)
[2025-04-09 18:58] LABS: RHEUMATOID FACTOR QUANT 84.7 IU/ML (<14)
== END ==
LOC: M LAB REF 17:36
PROVIDERS: ATTEND Internal Medicine
DX: M25.50 Pain in unspecified joint (principal)

== ENCOUNTER → 2025-04-11 | Outpatient (CLI) | payer OTHER | LOC: M OUTALCOH 12:03 | PROVIDERS: ATTEND Psychiatry & Neurology Psychiatry | DX: F10.20 Alcohol dependence, uncomplicated (principal); F17.200 Nicotine dependence, unspecified, uncomplicated ==

== ENCOUNTER → 2025-04-12 | Outpatient (CLI) | payer OTHER | LOC: M WHC 13:46 | PROVIDERS: ATTEND Internal Medicine | DX: Z12.31 Encounter for screening mammogram for malignant neoplasm of breast (principal); R92.323 Mammographic fibroglandular density, bilateral breasts; R09.89 Other specified symptoms and signs involving the circulatory and respiratory systems ==

== ENCOUNTER → 2025-04-12 | Outpatient (CLI) | payer OTHER ==
[2025-04-12 15:36] LABS: BASO # 0.1 10^3/uL (0.0-0.2); BASO % 1.2 % (0.0-1.0); EOS # 0.5 10^3/uL (0.0-0.5); EOS % 5.6 % (0.0-3.0); LYMPH # 2.9 10^3/uL (1.5-5.0); LYMPH % 35.1 % (24.0-44.0); MONO # 0.7 10^3/uL (0.0-0.8); MONO % 8.3 % (2.0-8.0); NEUTROPHILS # 4.0 10^3/uL (1.5-8.5); NEUTROPHILS % 49.1 % (36.0-66.0); PLATELET COUNT, AUTOMATED 314 10^3/uL (150-450)
== END ==
LOC: M LAB 14:57
PROVIDERS: ATTEND Internal Medicine
DX: R09.89 Other specified symptoms and signs involving the circulatory and respiratory systems (principal)

== ENCOUNTER → 2025-04-25 | Outpatient (REF) | payer OTHER, MEDICARE | LOC: M LAB REF 19:22 | PROVIDERS: ATTEND Physician Assistant | DX: B34.9 Viral infection, unspecified (principal) ==

== ENCOUNTER → 2025-05-10 | Outpatient (RCR) | payer OTHER | LOC: M OUTALCOH 04-18 13:20 | PROVIDERS: ATTEND Psychiatry & Neurology Psychiatry | DX: F10.20 Alcohol dependence, uncomplicated (principal); F17.200 Nicotine dependence, unspecified, uncomplicated | CPT/HCPCS: 90834; 90853; G0463 ==

== ENCOUNTER → 2025-05-27 | Outpatient (REF) | payer OTHER, MEDICAID | LOC: M LAB REF 16:49 | PROVIDERS: ATTEND Internal Medicine | DX: R05.1 Acute cough (principal) ==

== ENCOUNTER 2025-06-05 08:40 | Outpatient (RCR) | payer OTHER | END 2025-06-09 | LOC: M OUTALCOH 08:40 | PROVIDERS: ATTEND Psychiatry & Neurology Psychiatry | DX: F10.20 Alcohol dependence, uncomplicated (principal); F17.200 Nicotine dependence, unspecified, uncomplicated ==

== ENCOUNTER → 2025-06-21 | Outpatient (REF) | payer OTHER | LOC: M LAB REF 18:09 | PROVIDERS: ATTEND Physician Assistant | DX: B34.9 Viral infection, unspecified (principal) ==

== ENCOUNTER → 2025-07-10 | Outpatient (RCR) | payer OTHER | LOC: M OUTALCOH 06-10 08:40 | PROVIDERS: ATTEND Psychiatry & Neurology Psychiatry | DX: F10.20 Alcohol dependence, uncomplicated (principal); F17.200 Nicotine dependence, unspecified, uncomplicated ==